=== PATIENT | female | born 1935 | race Caucasian/White ===

== ENCOUNTER → 2016-08-26 | Outpatient (REF) | payer MEDICARE, OTHER ==
[~2016-08-26] MED LIST: ASPI1TAB PO; ATEN50TA2 PO; Albuterol/Ipratropium NEB; CEPH500C PO; CHIL1CHW5 PO; COLC1TAB5 PO; DEXT50IN6 IV; DIOV320T6 PO; DOCU10CA PO; DOXY100T16 PO; GLIP5TAB8 PO; GLUC1INJ2 SC; GLUC4CHW PO; GLUCTAB6 PO; HYDR-3713 PO; JANU25TA PO; LOVE1INJ2 SC; MEGA625S PO; MIRT15TA3 PO; PANT40TA2 PO; POTA10CA PO; PRED10TA PO; PRED20TAB PO; PROT1TAB2 PO; SILV50CR TOP; SYNT50TA PO; TENO1TAB3 PO; TYLE325T5 PO; VALS1TAB46 PO; VITA1CAP2 PO; XARE15TA PO; ZOCO40TA PO
== END ==
LOC: M LAB REF 18:38
PROVIDERS: ATTEND Internal Medicine
DX: M10.372 Gout due to renal impairment, left ankle and foot (principal)

== ENCOUNTER → 2016-10-23 | Outpatient (CLI) | payer MEDICARE, OTHER ==
[~2016-10-23] MED LIST changes: +ALBU83IN INH; +ELIQ2.5T PO; +GLIP2.5T6 PO; +IPRASOL4 IN; +LEXA1TAB PO; +MACR100C3 PO; +NAME21CA PO; +QUET1TAB7 PO; +TORS5TAB2 PO; +VALS1TAB47 PO
--- NOTE | 2016-10-23 15:23 | REP ---
Right hand four views: There are no comparisons. There is osteoarthritis at the thumb CMC articulation. There is osteoarthritis at the articulation of the scaphoid and multangular ossicles. There is joint space narrowing of the PIP and DIP articulations compatible with articular cartilage atrophy. The MCP articulations are unremarkable. There is no fracture or dislocation. There are no calcifications or foreign bodies. 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 Joint space narrowing of the digits likely early osteoarthritic change. Signed by Smooth Ortiz MD 10/23/2016 03:15 P
== END ==
LOC: M WUC 14:59
PROVIDERS: ATTEND Physician Assistant
DX: N39.0 Urinary tract infection, site not specified (principal); M25.541 Pain in joints of right hand

== ENCOUNTER 2016-10-30 01:07 | Inpatient (IN) | payer MEDICARE, OTHER ==
[~2016-10-30] VITALS: Ht 157.5 cm; Wt 80.6 kg
[~2016-10-30 01:07] MED LIST changes: -ALBU83IN INH; -CHIL1CHW5 PO; +CHIL81CH2 PO; +COLC1TAB14 PO; -COLC1TAB5 PO; -ELIQ2.5T PO; -GLIP2.5T6 PO; -IPRASOL4 IN; -LEXA1TAB PO; -MACR100C3 PO; -NAME21CA PO; -QUET1TAB7 PO; -TORS5TAB2 PO; -VALS1TAB47 PO
[2016-10-30] MEDS ORDERED: LEXA1TAB PO (01:29)
[2016-10-30] MEDS ORDERED: ELIQ2.5T PO (01:29)
[2016-10-30] MEDS ORDERED: VITA1CAP2 PO (01:32)
[2016-10-30] MEDS ORDERED: TORS5TAB2 PO (01:32)
[2016-10-30] MEDS ORDERED: NAME21CA PO (01:32)
[2016-10-30] MEDS ORDERED: MACR100C43 PO (01:32)
[2016-10-30] MEDS ORDERED: IPRATROPIUM 0.5MG/ALBUTEROL 2.5MG INH SOL UD 3ML (DUONEB)(J7620) NEB ONE (02:30)
[2016-10-30 03:12] LABS: VENOUS BASE EXCESS 1.5 (-2.0-2.0); VENOUS O2 SATURATION 90.8 % (60.0-80.0); VENOUS PARTIAL PRESSURE O2 64.2 mmHg (30.0-50.0); VENOUS STANDARD HCO3 25.6 MEQ/L; VENOUS TOTAL CO2 28.6 MEQ/L (24.0-28.0)
[2016-10-30 03:17] LABS: INR 1.44
[2016-10-30 03:29] LABS: BASO # 0.1 K/mm3 (0.0-0.2); BASO % 0.4 % (0.0-1.0); EOS # 0.3 K/mm3 (0.0-0.50); EOS % 1.9 % (0.0-3.0); LARGE UNSTAINED CELL # 0.2 K/mm3 (0.0-0.4); LARGE UNSTAINED CELL % 1.3 % (0.0-4.0); LYMPH # 0.6 K/mm3 (1.5-4.5); LYMPH % 3.3 % (24.0-44.0); MEAN CORPUSCULAR HEMOGLOBIN 29.4 pg (27.0-33.0); MEAN CORPUSCULAR HGB CONC 33.5 g/dl (32.0-36.5); MONO # 0.5 K/mm3 (0.0-0.8); MONO % 3.5 % (0.0-5.0); NEUTROPHILS # 12.6 K/mm3 (1.8-7.7); NEUTROPHILS % 89.6 % (36.0-66.0); PLATELET COUNT, AUTOMATED 151 k/mm3 (150-450); RED CELL DISTRIBUTION WIDTH 15.4 % (11.5-14.5); WHITE BLOOD COUNT 14.1 K/mm3 (4.0-10.0)
[2016-10-30 03:50] LABS: ANION GAP 9 MEQ/L (8-16); BLOOD UREA NITROGEN 41 MG/DL (7-18); CALCIUM LEVEL 9.7 MG/DL (8.8-10.2); CARBON DIOXIDE LEVEL 28 MEQ/L (21-32); CHLORIDE LEVEL 101 MEQ/L (98-107); CREATININE FOR GFR 3.17 MG/DL (0.55-1.02); GLOMERULAR FILTRATION RATE 14.9 (>32); GLUCOSE, FASTING 223 MG/DL (83-110); SODIUM LEVEL 138 MEQ/L (136-145)
--- NOTE | 2016-10-30 03:50 | REPUSA ---
CLINICAL HISTORY: Altered mental status. TECHNIQUE: Multiple axial CT images were obtained through the brain without IV contrast material. COMMENTS: There is normal configuration of sella turcica. There are no intra or extra-axial collections. There is no mass effect or midline shift. There is no evidence of hematoma formation. No hydrocephalus is p resent. The ventricles are symmetrical. No abnormal calcifications are present. There is diffuse age-appropriate cerebellar and cerebral atrophy with proportionally dilated ventricl es and cortical sulci. There are bilateral periventricular and subcortical white matter hypolucencies compatible with mild c hronic microvascular disease. Otherwise, no significant focal abnormalities are seen either in the posterior fossa or supratentoria l compartment. IMPRESSION: 1. Age-appropriate cerebellar and cerebral atrophy. 2. Mild chronic microvascular disease. 3. No evidence of acute intracranial pathology. Thank you for your kind referral of this patient.
[2016-10-30] MEDS ORDERED: cefTRIAXone SOD 1 GM in D5W MINI-BAG PLUS 50 ML IV ONE (05:00)
[2016-10-30] MEDS ORDERED: GLIP2.5T6 PO (05:01)
[2016-10-30] MEDS ORDERED: ALBU83IN INH (05:01)
[2016-10-30] MEDS ORDERED: QUET1TAB7 PO (05:01)
[2016-10-30] MEDS ORDERED: IPRASOL4 IN (05:01)
[2016-10-30] MEDS ORDERED: VALS1TAB47 PO (05:03)
[2016-10-30] MEDS ORDERED: GLUCOSE 4 GM CHEW TABLET PO PRN (05:45)
[2016-10-30] MEDS ORDERED: GLUCAGON FOR INJ 1 MG VIAL (J1610) SC PRN (05:45)
[2016-10-30] MEDS ORDERED: FUROSEMIDE 100 MG/10 ML VIAL (J1940) IV ONE (05:45)
[2016-10-30] MEDS ORDERED: DEXTROSE 50% 50 ML SYRINGE IV PRN (05:45)
[2016-10-30] MEDS: LEVOTHYROXINE 50MCG TABLET (0.05MG) PO SCH (06:05)
[2016-10-30] MEDS ORDERED: ACETAMINOPHEN TAB 650MG DOSE (2X325MG) PO PRN (06:15)
[2016-10-30] MEDS ORDERED: ONDANSETRON 4MG/2ML VIAL (J2405) IV PRN (06:15)
--- NOTE | 2016-10-30 06:20 | REPUSA ---
CLINICAL HISTORY: Cough. TECHNIQUE: Multiple axial CT images were obtained through chest without IV contrast material. COMMENTS: Small pleural effusions. Passive atelectatic airspace disease of the lower lobes. Moderate cardiomegaly. Heavy calcifications of the mitral valve. Small pericardial effusion. Mildly enlarged mediastinal and hilar lymph nodes the largest measuring 1.3 cm. Small sliding hiatal hernia. Diffuse bilateral peribronchial interstitial thickening. The visualized portions of the liver are of uniform attenuation without mass or defect. There is no i ntra or extrahepatic biliary ductal dilatation. The spleen is unremarkable. The visualized pancreas i s of normal contour and attenuation characteristics. There is no evidence of adrenal mass. The visual ized portions of the kidneys present no abnormalities. The bony structures are free of lytic or blastic lesions. Multilevel degenerative changes are seen in volving the thoracic spine. Scattered calcifications are seen involving the aorta and visualized pranay r branches compatible with atherosclerosis. IMPRESSION: Congestive heart failure. Bronchitis. Small pleural effusions. Passive atelectatic airspace disease of the lower lobes. Bilateral basilar chronic interstitial thickening. Findings have progressed since the prior exam. Thank you for your kind referral of this patient.
[2016-10-30] MEDS ORDERED: IPRATROPIUM 0.5MG/ALBUTEROL 2.5MG INH SOL UD 3ML (DUONEB)(J7620) NEB PRN (06:30)
[2016-10-30 06:47] VITALS: BP 138/90
[2016-10-30] MEDS: AZITHROMYCIN INJ 500 MG, VIAL MATE ADAPTER 1 EACH in D5W 250 ML IV SCH (06:53)
[2016-10-30 07:25] VITALS: BP 127/73
[2016-10-30] MEDS: HumaLOG INSULIN (NovoLOG) PER UNIT SC SCH ×4 (07:30→21:00)
--- NOTE | 2016-10-30 07:55 | HPE ---
DATE OF ADMISSION: 10/30/2016 PRIMARY CARE PROVIDER: Dr. Ellis. CHIEF COMPLAINT: Shortness of breath, coughing, fall. HISTORY OF PRESENT ILLNESS: This is an 81-year-old female patient (history is significantly limited by dementia, mostly taken from family) with underlying medical history of type 2 diabetes, hypertension, dyslipidemia, diastolic congestive heart failure, upper gastrointestinal (GI) bleed with gastric ulcer, obstructive sleep apnea not on continuous positive airway pressure (CPAP), chronic atrial fibrillation on Eliquis, gout, hypothyroidism, chronic kidney disease (CKD) stage IV, baseline creatinine about 2, questionable history of chronic obstructive pulmonary disease (COPD),coronary artery disease. As per family, patient baseline ambulating with a walker, has a history of frequent falls about once a week, and also urinary and bowel incontinence, earlier last night, patient also has been having persistent cough, shortness of breath, positive sick contact as the patient's with pneumonia. Earlier last night, patient had an episode of nausea and vomiting. Subsequently, patient went to bed and was found down on the ground with the walker right next to the patient, without loss of consciousness. Patient was in the process of going to the bathroom, was found to be urinary and bowel incontinent. Patient denies any pain anywhere. Denies hitting her head or having any injury. Mental status currently at baseline, which is alert to person and place, with episodes of confusion. Patient does not know why she is at the hospital but does know she is at hospital emergency room. Recently treated for urinary tract infection (UTI) with nitrofurantoin. Patient was found to be febrile in the emergency room with hypoxia, not on oxygen at home. Denies any chest pain, pressure or discomfort. No further episodes of nausea or vomiting. ALLERGIES: To NONSTEROIDAL ANTI- INFLAMMATORY DRUG (NSAID), NAPROXEN. PAST MEDICAL HISTORY: 1. Type 2 diabetes. 2. Hypertension. 3. Dyslipidemia. 4. Diastolic heart failure. 5. Upper GI bleed with gastric ulcer. 6. Sleep apnea not on CPAP. 7. Atrial fibrillation on Eliquis. 8. Gout. 9. Hypothyroidism. 10. CKD stage IV. 11. Questionable history of COPD. 12. Coronary artery disease. PAST SURGICAL HISTORY: 1. Cataract surgery. 2. Esophagogastroduodenoscopy (EGD) with clipping. 3. Bilateral knee replacement. 4. Left shoulder surgery. SOCIAL HISTORY: Patient occasionally drinks wine, very rarely, once every 2 months or 3 months, and used to smoke many, many years ago in the teenage years for 10 years. Patient is DO NOT RESUSCITATE/DO NOT INTUBATE. FAMILY HISTORY: Father with coronary artery disease. Mother lived up to 101. REVIEW OF SYSTEM: Limited secondary to patient's dementia. The patient pretty much denies any chest pain, pressure or discomfort. Denies any headache or visual change. Reported one episode of nausea and vomiting. Reported frequent falls but denies pain anywhere. Denies urinary complaints. Further history not possible. HOME MEDICATION: - albuterol inhalation four times a day - DuoNebs four times a day - Eliquis 2.5 mg by mouth twice a day - atenolol 50 mg by mouth twice a day - vitamin D 1000 units by mouth daily - colchicine 0.6 mg by mouth daily - Lexapro 10 mg by mouth daily - glipizide 2.5 mg by mouth daily - Synthroid 50 mcg by mouth daily - Macrobid 100 mg by mouth twice a day (end day 10/30/2016) - Protonix 40 mg by mouth daily - Seroquel 12.5 mg by mouth nightly - Zocor 40 mg by mouth nightly - Januvia 25 mg by mouth daily - torsemide 5 mg by mouth daily - valsartan 160 mg by mouth daily PHYSICAL EXAMINATION: Vital Signs: Maximum temperature (Tmax) 100.6, pulse 108, respirations 18, blood pressure 137/93, pulse oximetry 88% on room air, 95% on 2 liters. General: Patient alert, oriented times two, in no acute distress. HEENT: Normocephalic, atraumatic. Pulmonary: Bilateral rhonchi. No wheeze. Cardiac: Irregularly irregular. Distant heart sound. No murmurs detected. Abdomen: Obese. Soft. Nontender. Positive bowel sound. Extremities: Trace edema bilateral lower extremities. EKG shows atrial fibrillation, rate of 102. No change from previous. LABORATORY: WBC 14.1, hemoglobin and hematocrit 13.6/40.6, platelets 151. Chemistry: [id number], potassium 4, chloride 101, bicarbonate 28, BUN 41, creatinine 3.17. Cardiac enzymes negative times one. C-reactive protein 3.29. Brain natriuretic peptide 323. CT scan shows evidence of congestive heart failure (CHF) with small pleural effusions. ASSESSMENT AND PLAN: This is an 81-year-old female patient with underlying medical history of diabetes type 2, [id number], hypertension, dyslipidemia, diastolic heart failure, upper gastrointestinal bleed, sleep apnea and noncompliant with CPAP, atrial fibrillation, gout, hypothyroidism, chronic kidney disease stage IV, questionable chronic obstructive pulmonary disease, coronary artery disease, admitted with community-acquired bacterial pneumonia, positive sick contact and acute congestive heart failure exacerbation with hypoxia. PROBLEMS: 1. Shortness of breath with hypoxia multifactorial secondary to community-acquired bacterial pneumonia with sick contact. Continue Rocephin and Zithromax. Follow culture, respiratory panels. Follow C-reactive proteins. 2. Acute diastolic heart failure. Unknown ejection fraction, likely a component of pulmonary artery hypertension. Given patient is not using CPAP with underlying obstructive sleep apnea, will get echocardiograms to assess right heart functions and pulmonary artery pressure. Diuresis with Lasix. Strict intake and output. Daily weight. Followup electrolytes. Followup kidney function and followup cardiac enzyme. Brain natriuretic peptide likely low given patient is obese. 3. Acute on chronic renal insufficiency. Patient recently on nitrofurantoin, likely effected patient's kidney function. Holding angiotensin receptor blockers (ARBs). Continue to monitor kidney function. 4. Type 2 diabetes. Holding oral medication given elevated kidney function. Insulin per protocol. Consistent carbohydrate diet. 5. Hypertension. Monitor blood pressure. Continue atenolol and Lasix. Holding ARBs given elevated kidney function. 6. Dyslipidemia. Continue current medication. 7. History of gastrointestinal bleed. Monitor hemoglobin and hematocrit. 8. Obstructive sleep apnea. Noncompliant with CPAP. Monitor oxygen. Obstructive sleep apnea (MONIQUE) protocol. Echo to evaluate right heart function. 9. Atrial fibrillation. Continue beta-blockers and Eliquis. Telemetry monitoring. 10. Gout. Continue supportive care. 11. Hypothyroidism. Followup thyroid function and continue current medication. 12. Sepsis secondary to community-acquired bacterial pneumonia. Patient with fever, leukocytosis and tachycardia. Followup cultures. Respiratory panel. Continue Rocephin and Zithromax. Urinalysis (UA) appreciated. 13. Gastroesophageal reflux disease (GERD). Continue proton pump inhibitor (PPI). 14. Depression. Continue current medication. 15. Dementia. Supportive care. Social work consulted. 16. Deep venous thrombosis (DVT) prophylaxis. Patient on Eliquis. DISPOSITION PLANNING: Pending clinical improvement and further workup. MTDD
[2016-10-30] MEDS: IPRATROPIUM 0.5MG/ALBUTEROL 2.5MG INH SOL UD 3ML (DUONEB)(J7620) NEB SCH ×3 (08:00→20:13)
--- NOTE | 2016-10-30 08:40 | REP ---
Chest x-ray: Two views. History: Dyspnea. Cough. Comparison study: March 02, 2015. Findings: The heart is enlarged and there is mitral annular calcification unchanged. The lungs are exposed at a lesser inspiratory level but symmetrical. No infiltrate or atelectasis seen. No definite pleural effusion noted. The aorta is tortuous and calcific. There are degenerative changes in the thoracic spine. Pulmonary vasculature is not felt to be increased. Impression: No infiltrate seen. Moderate cardiomegaly. Relatively low level of inspiration. Signed by Jewel Wakefield MD 10/30/2016 09:54 A
[2016-10-30] MEDS ORDERED: TORSEMIDE 5MG TABLET PO SCH (09:00)
[2016-10-30] MEDS: VITAMIN D 1,000 INTERNATIONAL UNITS TABLET PO SCH (10:56)
[2016-10-30] MEDS: PANTOPRAZOLE 40MG TAB (PROTONIX) PO SCH (10:56)
[2016-10-30] MEDS: APIXABAN 2.5 MG TAB (ELIQUIS) PO SCH ×2 (10:57→21:27)
[2016-10-30] MEDS: SENOKOT S TAB PO SCH ×2 (10:57→21:27)
[2016-10-30] MEDS: ATENOLOL 50 MG TAB PO SCH ×2 (10:58→21:28)
[2016-10-30] MEDS: FUROSEMIDE 100 MG/10 ML VIAL (J1940) IV SCH ×2 (11:00→18:16)
[2016-10-30] MEDS: ESCITALOPRAM OXALATE 10 MG TAB (LEXAPRO) PO SCH (11:14)
[2016-10-30 11:25] VITALS: BP 118/59
[2016-10-30 16:00] VITALS: BP 143/79
--- NOTE | 2016-10-30 19:34 | ECGEPIP ---
Stationary ECG Study [facility] - ED Test Date: 2016-10-30 Pat Name: CATY ORTIZ Department: Room: - Gender: F Marketing Pr Intern: sruthi : 1935 Requested By: YUNG Erazo Order Number: [id number] Reading MD: Keith Garcia Measurements Intervals [place] Rate: 102 P: [place]: 0 QRS: 95 QRSD: 150 T: -50 QT: 393 QTc: 512 Interpretive Statements ATRIAL FIBRILLATION WITH RAPID VENTRICULAR RESPONSE RIGHT BUNDLE BRANCH BLOCK MODERATE T-WAVE ABNORMALITY, CONSIDER INFERIOR ISCHEMIA RAD CW 02/23/[address] T WAVE CHANGES Electronically Signed On 10-30-2016 19:34:22 EDT by Keith Garcia
[2016-10-30 20:00] VITALS: BP 129/63; PULSE 87
[2016-10-30] MEDS: SIMVASTATIN 40 MG TAB PO SCH (21:27)
[2016-10-30] MEDS: QUEtiapine FUMARATE 12.5 MG HALF-TAB PO SCH (21:39)
[2016-10-30 23:59] VITALS: BP 132/87
[2016-10-31] VITALS (8 sets, daily range): BP systolic 110–159; BP diastolic 64–79; PULSE 73–77
[2016-10-31] MEDS: IPRATROPIUM 0.5MG/ALBUTEROL 2.5MG INH SOL UD 3ML (DUONEB)(J7620) NEB SCH ×4 (01:58→20:39)
[2016-10-31 05:13] LABS: MEAN CORPUSCULAR HEMOGLOBIN 29.3 pg (27.0-33.0); MEAN CORPUSCULAR VOLUME 88.8 fl (80.0-96.0); RED CELL DISTRIBUTION WIDTH 15.1 % (11.5-14.5); WHITE BLOOD COUNT 8.9 K/mm3 (4.0-10.0)
[2016-10-31] MEDS: cefTRIAXone SOD 1 GM in D5W MINI-BAG PLUS 50 ML IV SCH (05:18)
[2016-10-31] MEDS: LEVOTHYROXINE 50MCG TABLET (0.05MG) PO SCH (05:18)
[2016-10-31] MEDS: AZITHROMYCIN INJ 500 MG, VIAL MATE ADAPTER 1 EACH in D5W 250 ML IV SCH (05:18)
[2016-10-31 05:50] LABS: ALBUMIN 3.1 GM/DL (3.2-5.2); ALBUMIN/GLOBULIN RATIO 1.03 (1.00-1.93); BILIRUBIN,TOTAL 1.9 MG/DL (0.2-1.0); CALCIUM LEVEL 9.2 MG/DL (8.8-10.2); CREATININE FOR GFR 3.32 MG/DL (0.55-1.02); GLOMERULAR FILTRATION RATE 14.1 (>32); MAGNESIUM LEVEL 2.1 MG/DL (1.8-2.4); POTASSIUM SERUM 3.2 MEQ/L (3.5-5.1); THYROXINE (T4) 8.7 UG/DL (4.5-12.0); TOTAL PROTEIN 6.1 GM/DL (6.4-8.2)
[2016-10-31] MEDS: guaiFENesin 200 MG TAB PO SCH ×3 (06:00→21:16)
--- NOTE | 2016-10-31 07:26 | ECHO ---
DATE OF PROCEDURE: 10/30/2016 AGE: 81 GENDER: Female REFERRING PHYSICIAN: Dr. Strickland. HEIGHT: 62 inches. WEIGHT: 174 pounds. BODY SURFACE AREA: 1.8 sq m. INPATIENT: PCU Room 3214 INDICATION: Dyspnea, atrial fibrillation. MEASUREMENTS: 2D MEASUREMENTS: RV - 2.5 cm LV- 4.9 cm Septum - 1.1 cm Posterior wall - 1.1 cm Aortic root - 3.1 cm LA - 5.1 cm LVEF - 75% DOPPLER MEASUREMENTS: AV - 3.0 m/s LVOT - 1.1 m/s LVOT diameter - 2.2 cm Mean AV gradient - 20 mmHg MV-E: 200 Early mitral deacceleration time 211 ms Pressure half time - 72 Mean MV gradient - 5 mmHg MVA - 2.9 cm2 PV - 0.8 m/s Pulmonary artery acceleration time - 132 ms RVSP - 36 mmHg IVC - 2.1 cm Underlying atrial fibrillation with controlled ventricular response. Two-dimensional and M-mode echo was performed along with pulsed and continuous wave Doppler, tissue Doppler and color flow Doppler. CONCLUSIONS: Normal left ventricular size, wall thickness and hyperkinetic wall motion. Prominently dilated left atrium, normal right ventricular size and wall motion with Doppler evidence of mild pulmonary hypertension. Prominently dilated right atrium with mildly dilated inferior vena cava with slightly reduced respiratory collapse suggestive of a mildly elevated central venous pressure. Moderate calcific aortic stenosis with dimensionless index measuring 0.36. Trace insufficiency. Moderately prominent mitral annular calcification with some thickening of the leaflet edges especially the posterior leaflet but adequate anterior leaflet motion. Doppler evidence of at least mild mitral stenosis and mild insufficiency. No apparent intracardiac mass or pericardial effusion.
[2016-10-31] MEDS: HumaLOG INSULIN (NovoLOG) PER UNIT SC SCH ×4 (07:30→21:00)
[2016-10-31] MEDS: ESCITALOPRAM OXALATE 10 MG TAB (LEXAPRO) PO SCH (10:00)
[2016-10-31] MEDS: VITAMIN D 1,000 INTERNATIONAL UNITS TABLET PO SCH (10:00)
[2016-10-31] MEDS: APIXABAN 2.5 MG TAB (ELIQUIS) PO SCH ×2 (10:00→21:17)
[2016-10-31] MEDS: FUROSEMIDE 100 MG/10 ML VIAL (J1940) IV SCH ×2 (10:00→18:15)
[2016-10-31] MEDS: SENOKOT S TAB PO SCH ×2 (10:00→21:16)
[2016-10-31] MEDS: PANTOPRAZOLE 40MG TAB (PROTONIX) PO SCH (10:00)
[2016-10-31] MEDS: ATENOLOL 50 MG TAB PO SCH ×2 (10:01→21:17)
[2016-10-31] MEDS ORDERED: POTASSIUM CHLORIDE 10 MEQ SR TABLET PO ONE (12:00)
--- NOTE | 2016-10-31 12:22 | IPNPDOC ---
Subjective Date Seen The patient was seen on 10/31/16. Subjective Chief Complaint/HPI The patient is a 81-year-old female admitted with a reason for visit of Diastolic Chf/Pneumonia. Events since last encounter Complains of cough with difficulty expectorating. Poor historian. Family (2 sons ) at bedside. General: Denies: ROS Unobtainable, Chills, Night Sweats, Fatigue, Malaise, Normal Appetite, Other Symptoms Constitutional: Denies: Chills, Fever, Malaise, Night Sweats, Weakness, Fatigue , Weight Loss, Lethargy, Other Eyes: Denies: Pain, Vision change, Conjunctivae inflammation, Eyelid inflammation, Redness, Other ENT: Denies: Head Aches, Ear Pain, Dysphagia, Sinus Congestion, Post Nasal Drip , Sore Throat, Epistaxis, Other Symptoms Skin: Denies: Rash, Lesions, Jaundice, Bruising, Itching, Dry, Breakdown, Nail Changes, Other Pulmonary: Reports: Cough, Denies: Dyspnea, Pleuritic Chest Pain, Other Symptoms Cardiovascular: Denies: Chest Pain, Palpitations, Orthopnea, Paroxysmal Noc. Dyspnea, Edema, Lt Headedness, Other Symptoms Gastrointestinal: Denies: Nausea, Vomiting, Abdominal Pain, Diarrhea, Constipation, Melena, Hematochezia, Other Symptoms Genitourinary: Denies: Dysuria, Frequency, Incontinence, Hematuria, Retention, Other Symptoms Objective Physical Examination General Exam: Positive: Alert, Cooperative, No Acute Distress Eye Exam: Positive: Conjunctiva & lids normal, EOMI Assessment /Plan Problems (1) Diastolic CHF Status: Acute Response to Treatment: Improving Discussed With: Patient, Family with Pt Consent Problem Specific Plan: Monitor Clinically Problem Text: Grossly compensated. Discontinued IV lasix. Home torsemide on hold for now given worsening creatinine. (2) Pneumonia Status: Acute Response to Treatment: Improving Discussed With: Patient, Family with Pt Consent Problem Specific Plan: Monitor Clinically Problem Text: Respiratory panel and sputum sample pending. For now continue with antibiotics. (3) Falls frequently Status: Chronic Discussed With: Patient, Family with Pt Consent Problem Specific Plan: Consult Specialist Problem Text: PT/OT eval/treat (4) Weakness Status: Chronic (5) Dementia Status: Chronic Problem Text: continue seroquel and lexapro as per home regimen (6) Diabetes Status: Chronic Problem Text: insulin sliding scale (7) Hypothyroid Status: Chronic Problem Text: continue synthroid (8) CKD (chronic kidney disease) Status: Chronic Problem Text: acute on chronic kidney disease. torsemide on hold. ARB on hold Nephrology consultation pending. (9) CAD (coronary artery disease) Status: Chronic Problem Text: continue zocor, atenolol (10) Dyslipidemia Status: Chronic Problem Text: Zocor (11) Upper GI bleed Status: Chronic Problem Text: History of upper gi bleed secondary to gastric ulcer (12) MONIQUE (obstructive sleep apnea) Status: Chronic Problem Specific Plan: Monitor Clinically (13) HTN (hypertension) Status: Chronic Problem Specific Plan: Monitor Clinically Problem Text: Continue with atenolol with hold parameters ARB on hold secondary to LES/CKD (14) Atrial fibrillation Status: Chronic Problem Specific Plan: Monitor Clinically Problem Text: rate controlled, anticoagulated with eliquis (15) Gout Status: Chronic Problem Specific Plan: Monitor Clinically Problem Text: colchicine (16) CKD (chronic kidney disease), stage IV Status: Chronic Problem Specific Plan: Repeat Labs Plan/VTE VTE Prophylaxis Ordered?: Yes (eliquis) Plan Diet: Continue Current Activity: Continue Current Therapy: PT, OT Pt and Family Services: Other PFS Diagnostics: Repeat Labs in AM Anticipated Discharge: Assisted Living, Skilled Nursing Discussed at length with sons at bedside and POA/HCP Antonio ([phone]). Patient with dementia and likely needs 24/7 care. Patient almost euvolemic -wean O2. Respiratory panel pending, sputum sample pending. IV antibiotics, likely transition to PO lasix in 24-48 hours. VS[facility] I[facility] Sign[facility]/I&O Vital Signs Date Time Temp Pulse Resp B/P (MAP) Pulse Ox O2 Delivery O2 Flow Rate FiO2 10/31/16 04:00 77 10/31/16 04:00 Room Air 10/31/16 03:57 98.4 20 121/71 (88) 90 3.0 I&O- Last 24 Hours up to 6 AM 10/31/16 05:59 Intake Total 1110 ml Output Total 300 ml Balance 810 ml Laboratory Data 24H LABS Laboratory Tests 2 10/30/16 11:44: Bedside Glucose (Misc Panel) 160H 10/30/16 16:17: Bedside Glucose (Misc Panel) 93 10/30/16 21:33: Bedside Glucose (Misc Panel) 116H 10/31/16 04:56: Anion Gap 8, Glomerular Filtration Rate 14.1L, Blood Urea Nitrogen 42H, Creatinine 3.32H, Sodium Level 142, Potassium Level 3.2L, Chloride Level 104, Carbon Dioxide Level 30, Calcium Level 9.2, Aspartate Amino Transf (AST/SGOT) 21 , Alanine Aminotransferase (ALT/SGPT) 19, Alkaline Phosphatase 73, Total Bilirubin 1.9H, Total Protein 6.1L, Albumin 3.1L, Magnesium Level 2.1, C- Reactive Protein, Quantitative 5.18H, Albumin/Globulin Ratio 1.03, Thyroid Stimulating Hormone (TSH) 1.820, Free Thyroxine Index 3.0, Thyroxine (T4) 8.7, Triiodothyronine (T3) Uptake 35 CBC/BMP Laboratory Tests 10/31/16 04:56 Red Blood Count 4.34, Mean Corpuscular Volume 88.8, Mean Corpuscular Hemoglobin 29.3, Mean Corpuscular Hemoglobin Concent 33.0, Red Cell Distribution Width 15.1 H, Calcium Level 9.2, Aspartate Amino Transf (AST/SGOT) 21, Alanine Aminotransferase (ALT/SGPT) 19, Alkaline Phosphatase 73, Total Bilirubin 1.9 H, Total Protein 6.1 L, Albumin 3.1 L Microbiology Microbiology 10/30/16 Blood Culture - Preliminary, Resulted No growth after 24 hours . All specim... 10/30/16 Blood Culture - Preliminary, Resulted No growth after 24 hours . All specim... 10/30/16 Influenza Virus Type A Antigen - Final, Complete 10/30/16 Influenza Virus Type B Antigen - Final, Complete 10/30/16 Urine Culture, Worksheet Pending BROOKE MUSTAFA MD Oct 31, 2016 09:02
[2016-10-31] MEDS: QUEtiapine FUMARATE 12.5 MG HALF-TAB PO SCH (21:16)
[2016-10-31] MEDS: SIMVASTATIN 40 MG TAB PO SCH (21:17)
[2016-11-01] MEDS: IPRATROPIUM 0.5MG/ALBUTEROL 2.5MG INH SOL UD 3ML (DUONEB)(J7620) NEB SCH ×4 (02:00→20:00)
[2016-11-01 04:03] VITALS: BP 169/85
[2016-11-01 04:31] VITALS: BP 145/75
[2016-11-01] MEDS: cefTRIAXone SOD 1 GM in D5W MINI-BAG PLUS 50 ML IV SCH (05:12)
[2016-11-01 05:47] LABS: MEAN CORPUSCULAR HEMOGLOBIN 29.4 pg (27.0-33.0); MEAN CORPUSCULAR HGB CONC 33.6 g/dl (32.0-36.5); MEAN CORPUSCULAR VOLUME 87.5 fl (80.0-96.0); WHITE BLOOD COUNT 9.5 K/mm3 (4.0-10.0)
[2016-11-01] MEDS: AZITHROMYCIN INJ 500 MG, VIAL MATE ADAPTER 1 EACH in D5W 250 ML IV SCH (05:54)
[2016-11-01 06:00] LABS: ALBUMIN 3.2 GM/DL (3.2-5.2); ALBUMIN/GLOBULIN RATIO 0.97 (1.00-1.93); BILIRUBIN,TOTAL 1.6 MG/DL (0.2-1.0); CALCIUM LEVEL 9.3 MG/DL (8.8-10.2); CREATININE FOR GFR 3.32 MG/DL (0.55-1.02); GLOMERULAR FILTRATION RATE 14.1 (>32); POTASSIUM SERUM 3.3 MEQ/L (3.5-5.1); TOTAL PROTEIN 6.5 GM/DL (6.4-8.2)
[2016-11-01] MEDS: guaiFENesin 200 MG TAB PO SCH ×3 (06:33→21:41)
[2016-11-01] MEDS: LEVOTHYROXINE 50MCG TABLET (0.05MG) PO SCH (06:33)
[2016-11-01 07:53] VITALS: BP 115/62
[2016-11-01] MEDS ORDERED: POTASSIUM CHLORIDE 10 MEQ SR TABLET PO ONE (08:00)
[2016-11-01] MEDS: APIXABAN 2.5 MG TAB (ELIQUIS) PO SCH ×2 (09:36→21:42)
[2016-11-01] MEDS: PANTOPRAZOLE 40MG TAB (PROTONIX) PO SCH (09:36)
[2016-11-01] MEDS: ESCITALOPRAM OXALATE 10 MG TAB (LEXAPRO) PO SCH (09:36)
[2016-11-01] MEDS: VITAMIN D 1,000 INTERNATIONAL UNITS TABLET PO SCH (09:39)
[2016-11-01] MEDS: ATENOLOL 50 MG TAB PO SCH ×2 (09:39→21:42)
[2016-11-01] MEDS: SENOKOT S TAB PO SCH ×2 (09:39→21:41)
[2016-11-01] MEDS: HumaLOG INSULIN (NovoLOG) PER UNIT SC SCH ×4 (09:40→21:00)
[2016-11-01 11:33] VITALS: BP 156/82
--- NOTE | 2016-11-01 13:50 | IPNPDOC ---
Subjective Date Seen The patient was seen on 11/01/16. Subjective Chief Complaint/HPI The patient is a 81-year-old female admitted with a reason for visit of Diastolic Chf/Pneumonia. General: Denies: ROS Unobtainable, Chills, Night Sweats, Fatigue, Malaise, Normal Appetite, Other Symptoms Constitutional: Denies: Chills, Fever, Malaise, Night Sweats, Weakness, Fatigue , Weight Loss, Lethargy, Other Eyes: Denies: Pain, Vision change, Conjunctivae inflammation, Eyelid inflammation, Redness, Other ENT: Denies: Head Aches, Ear Pain, Dysphagia, Sinus Congestion, Post Nasal Drip , Sore Throat, Epistaxis, Other Symptoms Skin: Denies: Rash, Lesions, Jaundice, Bruising, Itching, Dry, Breakdown, Nail Changes, Other Pulmonary: Denies: Dyspnea, Cough, Pleuritic Chest Pain, Other Symptoms Cardiovascular: Denies: Chest Pain, Palpitations, Orthopnea, Paroxysmal Noc. Dyspnea, Edema, Lt Headedness, Other Symptoms Gastrointestinal: Denies: Nausea, Vomiting, Abdominal Pain, Diarrhea, Constipation, Melena, Hematochezia, Other Symptoms Objective Physical Examination General Exam: Positive: Alert, Cooperative, No Acute Distress Eye Exam: Positive: Conjunctiva & lids normal, EOMI ENT Exam: Positive: Atraumatic Chest Exam: Positive: Clear to auscultation, Diminished Heart Exam: Positive: Irregular Rhythm Telemetry: Positive: Atrial fibrillation Abdomen Exam: Positive: Normal bowel sounds, Soft, Negative: Tenderness Extremity Exam: Negative: Edema Psych Exam: Negative: Oriented x 3 Assessment /Plan Problems (1) Diastolic CHF Status: Acute Response to Treatment: Improving Discussed With: Patient, Family with Pt Consent Problem Specific Plan: Monitor Clinically Problem Text: Grossly compensated. Discontinued IV lasix. Home torsemide on hold for now given worsening creatinine. (2) Pneumonia Status: Acute Response to Treatment: Improving Discussed With: Patient, Family with Pt Consent Problem Specific Plan: Monitor Clinically Problem Text: Respiratory panel and sputum sample pending. For now continue with antibiotics. (3) Falls frequently Status: Chronic Discussed With: Patient, Family with Pt Consent Problem Specific Plan: Consult Specialist Problem Text: PT/OT eval/treat (4) Weakness Status: Chronic (5) Dementia Status: Chronic Problem Text: continue seroquel and lexapro as per home regimen (6) Diabetes Status: Chronic Problem Text: insulin sliding scale (7) Hypothyroid Status: Chronic Problem Text: continue synthroid (8) CKD (chronic kidney disease) Status: Chronic Problem Text: acute on chronic kidney disease. torsemide on hold. ARB on hold Nephrology consultation pending. (9) CAD (coronary artery disease) Status: Chronic Problem Text: continue zocor, atenolol (10) Dyslipidemia Status: Chronic Problem Text: Zocor (11) Upper GI bleed Status: Chronic Problem Text: History of upper gi bleed secondary to gastric ulcer (12) MONIQUE (obstructive sleep apnea) Status: Chronic Problem Specific Plan: Monitor Clinically (13) HTN (hypertension) Status: Chronic Problem Specific Plan: Monitor Clinically Problem Text: Continue with atenolol with hold parameters ARB on hold secondary to LES/CKD (14) Atrial fibrillation Status: Chronic Problem Specific Plan: Monitor Clinically Problem Text: rate controlled, anticoagulated with eliquis (15) Gout Status: Chronic Problem Specific Plan: Monitor Clinically Problem Text: colchicine (16) CKD (chronic kidney disease), stage IV Status: Chronic Problem Specific Plan: Repeat Labs Plan/VTE VTE Prophylaxis Ordered?: Yes (eliquis) Plan Diet: Continue Current Activity: Continue Current Therapy: PT, OT Pt and Family Services: Other PFS Diagnostics: Repeat Labs in AM Anticipated Discharge: Assisted Living, Group Home Creatinine increased. Baseline possibly 2? Nephrology consultation pending - holding ARB and torsemide. Will need placement. VS, I&O, 24H, Fishbone Vital Signs/I&O Vital Signs Date Time Temp Pulse Resp B/P (MAP) Pulse Ox O2 Delivery O2 Flow Rate FiO2 11/01/16 11:33 96.4 68 18 156/82 (106) 97 Room Air 10/31/16 15:30 3.0 I&O- Last 24 Hours up to 6 AM 11/01/16 06:00 Intake Total 1590 ml Output Total 1400 ml Balance 190 ml Laboratory Data 24H LABS Laboratory Tests 2 10/31/16 16:47: Bedside Glucose (Misc Panel) 124H 10/31/16 21:21: Bedside Glucose (Misc Panel) 162H 11/01/16 05:02: Anion Gap 8, Glomerular Filtration Rate 14.1L, Blood Urea Nitrogen 41H, Creatinine 3.32H, Sodium Level 139, Potassium Level 3.3L, Chloride Level 101, Carbon Dioxide Level 30, Calcium Level 9.3, Aspartate Amino Transf (AST/SGOT) 19 , Alanine Aminotransferase (ALT/SGPT) 19, Alkaline Phosphatase 81, Total Bilirubin 1.6H, Total Protein 6.5, Albumin 3.2, Magnesium Level 2.0, Albumin/ Globulin Ratio 0.97L 11/01/16 11:33: Bedside Glucose (Misc Panel) 144H CBC/BMP Laboratory Tests 11/01/16 05:02 Red Blood Count 4.55, Mean Corpuscular Volume 87.5, Mean Corpuscular Hemoglobin 29.4, Mean Corpuscular Hemoglobin Concent 33.6, Red Cell Distribution Width 15.0 H, Calcium Level 9.3, Aspartate Amino Transf (AST/SGOT) 19, Alanine Aminotransferase (ALT/SGPT) 19, Alkaline Phosphatase 81, Total Bilirubin 1.6 H, Total Protein 6.5, Albumin 3.2 Microbiology Microbiology 10/30/16 Blood Culture - Preliminary, Resulted No Growth after 48 hours. All Specime... 10/30/16 Blood Culture - Preliminary, Resulted No Growth after 48 hours. All Specime... 11/01/16 Respiratory Virus Panel (PCR) (CHASIDY) - Final, Complete 10/30/16 Influenza Virus Type A Antigen - Final, Complete 10/30/16 Influenza Virus Type B Antigen - Final, Complete 10/30/16 Urine Culture - Final, Complete Proteus Mirabilis BROOKE MUSTAFA MD Nov 01, 2016 13:50
[2016-11-01] MEDS: COLCHICINE 0.6 MG TAB PO SCH (14:56)
[2016-11-01 16:00] VITALS: BP 130/96
[2016-11-01 20:25] VITALS: BP 156/71
[2016-11-01] MEDS: QUEtiapine FUMARATE 12.5 MG HALF-TAB PO SCH (21:41)
[2016-11-01] MEDS: SIMVASTATIN 40 MG TAB PO SCH (21:42)
[2016-11-02] VITALS (7 sets, daily range): BP systolic 138–157; BP diastolic 88–96
[2016-11-02] MEDS: IPRATROPIUM 0.5MG/ALBUTEROL 2.5MG INH SOL UD 3ML (DUONEB)(J7620) NEB SCH ×4 (01:17→20:00)
[2016-11-02] MEDS: guaiFENesin 200 MG TAB PO SCH ×3 (05:36→21:20)
[2016-11-02] MEDS: cefTRIAXone SOD 1 GM in D5W MINI-BAG PLUS 50 ML IV SCH (05:36)
[2016-11-02] MEDS: LEVOTHYROXINE 50MCG TABLET (0.05MG) PO SCH (05:36)
[2016-11-02 05:39] LABS: MEAN CORPUSCULAR HEMOGLOBIN 29.6 pg (27.0-33.0); MEAN CORPUSCULAR HGB CONC 33.6 g/dl (32.0-36.5); MEAN CORPUSCULAR VOLUME 88.1 fl (80.0-96.0); RED CELL DISTRIBUTION WIDTH 15.3 % (11.5-14.5); WHITE BLOOD COUNT 8.4 K/mm3 (4.0-10.0)
[2016-11-02 06:10] LABS: ALBUMIN 3.2 GM/DL (3.2-5.2); ALBUMIN/GLOBULIN RATIO 1.1 (1.00-1.93); BILIRUBIN,TOTAL 1.2 MG/DL (0.2-1.0); CALCIUM LEVEL 9.2 MG/DL (8.8-10.2); GLOMERULAR FILTRATION RATE 15.9 (>32); MAGNESIUM LEVEL 2.1 MG/DL (1.8-2.4); POTASSIUM SERUM 3.7 MEQ/L (3.5-5.1); TOTAL PROTEIN 6.1 GM/DL (6.4-8.2)
[2016-11-02] MEDS: SENOKOT S TAB PO SCH ×2 (09:45→21:20)
[2016-11-02] MEDS: PANTOPRAZOLE 40MG TAB (PROTONIX) PO SCH (09:45)
[2016-11-02] MEDS: ESCITALOPRAM OXALATE 10 MG TAB (LEXAPRO) PO SCH (09:46)
[2016-11-02] MEDS: AZITHROMYCIN 250 MG TAB PO SCH (09:46)
[2016-11-02] MEDS: COLCHICINE 0.6 MG TAB PO SCH (09:46)
[2016-11-02] MEDS: VITAMIN D 1,000 INTERNATIONAL UNITS TABLET PO SCH (09:46)
[2016-11-02] MEDS: APIXABAN 2.5 MG TAB (ELIQUIS) PO SCH ×2 (09:46→21:20)
[2016-11-02] MEDS: ATENOLOL 50 MG TAB PO SCH ×2 (09:47→21:20)
[2016-11-02] MEDS: HumaLOG INSULIN (NovoLOG) PER UNIT SC SCH ×4 (09:48→20:22)
--- NOTE | 2016-11-02 14:52 | IPNPDOC ---
Subjective Date Seen The patient was seen on 11/02/16. Subjective Chief Complaint/HPI The patient is a 81-year-old female admitted with a reason for visit of Diastolic Chf/Pneumonia. Events since last encounter Poor historian, but complains of cough, no sputum, feeling better than at admission, tolerating diet, wants to leave hospital. Constitutional: Denies: Chills, Fever Pulmonary: Reports: Cough, Denies: Dyspnea Cardiovascular: Denies: Chest Pain, Palpitations Gastrointestinal: Denies: Nausea, Vomiting, Abdominal Pain Objective Physical Examination General Exam: Positive: Alert, Cooperative Eye Exam: Negative: Sclera icteric ENT Exam: Positive: Atraumatic, Mucous membr. moist/pink Chest Exam: Positive: Clear to auscultation, Diminished, Negative: Wheezing Heart Exam: Positive: Rate Normal, Irregular Rhythm, Normal S1, Normal S2 Telemetry: Positive: Atrial fibrillation Abdomen Exam: Positive: Normal bowel sounds, Soft, Negative: Tenderness Extremity Exam: Negative: Edema Psych Exam: Negative: Oriented x 3 Assessment /Plan Problems (1) Diastolic CHF Status: Acute Response to Treatment: Improving Discussed With: Patient, Family with Pt Consent Problem Specific Plan: Monitor Clinically Problem Text: Grossly compensated. Off IV lasix. Home torsemide on hold for now given worsening creatinine. Consider restart 11/03/16 (2) Pneumonia Status: Acute Response to Treatment: Improving Discussed With: Patient, Family with Pt Consent Problem Specific Plan: Monitor Clinically Problem Text: Respiratory panel neg sputum sample pending- likely will not be obtained Plan 5 days of antibiotics (3) Falls frequently Status: Chronic Discussed With: Patient, Family with Pt Consent Problem Specific Plan: Consult Specialist Problem Text: PT/OT eval/treat- discussed at multidisciplinary rounds (4) Weakness Status: Chronic (5) Dementia Status: Chronic Problem Text: continue seroquel and lexapro as per home regimen plan for placement (6) Diabetes Status: Chronic Problem Text: insulin sliding scale (7) Hypothyroid Status: Chronic Problem Text: continue synthroid (8) CKD (chronic kidney disease) Status: Chronic Problem Text: acute on chronic kidney disease. torsemide on hold. ARB on hold Consider nephrology consult depending on clinical course, cr improving today (9) CAD (coronary artery disease) Status: Chronic Problem Text: continue zocor, atenolol (10) Dyslipidemia Status: Chronic Problem Text: Zocor (11) Upper GI bleed Status: Chronic Problem Text: History of upper gi bleed secondary to gastric ulcer (12) MONIQUE (obstructive sleep apnea) Status: Chronic Problem Specific Plan: Monitor Clinically (13) HTN (hypertension) Status: Chronic Problem Specific Plan: Monitor Clinically Problem Text: Continue with atenolol with hold parameters ARB on hold secondary to LES/CKD (14) Atrial fibrillation Status: Chronic Problem Specific Plan: Monitor Clinically Problem Text: rate controlled, anticoagulated with eliquis (15) Gout Status: Chronic Problem Specific Plan: Monitor Clinically Problem Text: colchicine (16) CKD (chronic kidney disease), stage IV Status: Chronic Problem Specific Plan: Repeat Labs Plan/VTE VTE Prophylaxis Ordered?: Yes (eliquis) Plan Diet: Continue Current Activity: Continue Current Therapy: PT, OT Pt and Family Services: Other PFS Diagnostics: Repeat Labs in AM Anticipated Discharge: Assisted Living, [facility] VS, I&O, 24H, Fishbone Vital Signs/I&O Vital Signs Date Time Temp Pulse Resp B/P (MAP) Pulse Ox O2 Delivery O2 Flow Rate FiO2 11/02/16 13:12 Room Air 11/02/16 11:30 96.5 84 20 147/93 (111) 93 10/31/16 15:30 3.0 I&O- Last 24 Hours up to 6 AM 11/02/16 06:00 Intake Total 480 ml Output Total 1350 ml Balance -870 ml Laboratory Data 24H LABS Laboratory Tests 2 11/01/16 17:04: Bedside Glucose (Misc Panel) 160H 11/02/16 05:15: Anion Gap 7L, Glomerular Filtration Rate 15.9L, Blood Urea Nitrogen 38H, Creatinine 3.00H, Sodium Level 141, Potassium Level 3.7, Chloride Level 105, Carbon Dioxide Level 29, Calcium Level 9.2, Aspartate Amino Transf (AST/SGOT) 17 , Alanine Aminotransferase (ALT/SGPT) 19, Alkaline Phosphatase 72, Total Bilirubin 1.2H, Total Protein 6.1L, Albumin 3.2, Magnesium Level 2.1, Albumin/ Globulin Ratio 1.10 CBC/BMP Laboratory Tests 11/02/16 05:15 Red Blood Count 4.38, Mean Corpuscular Volume 88.1, Mean Corpuscular Hemoglobin 29.6, Mean Corpuscular Hemoglobin Concent 33.6, Red Cell Distribution Width 15.3 H, Calcium Level 9.2, Aspartate Amino Transf (AST/SGOT) 17, Alanine Aminotransferase (ALT/SGPT) 19, Alkaline Phosphatase 72, Total Bilirubin 1.2 H, Total Protein 6.1 L, Albumin 3.2 Microbiology Microbiology 10/30/16 Blood Culture - Preliminary, Resulted No Growth after 72 hours. All specime... 10/30/16 Blood Culture - Preliminary, Resulted No Growth after 72 hours. All specime... 11/01/16 Respiratory Virus Panel (PCR) (CHASIDY) - Final, Complete 10/30/16 Influenza Virus Type A Antigen - Final, Complete 10/30/16 Influenza Virus Type B Antigen - Final, Complete 10/30/16 Urine Culture - Final, Complete Proteus Mirabilis KIMBERLEE ROBERTS MD Nov 02, 2016 14:52
[2016-11-02] MEDS: QUEtiapine FUMARATE 12.5 MG HALF-TAB PO SCH (21:20)
[2016-11-02] MEDS: SIMVASTATIN 40 MG TAB PO SCH (21:20)
[2016-11-03] MEDS: IPRATROPIUM 0.5MG/ALBUTEROL 2.5MG INH SOL UD 3ML (DUONEB)(J7620) NEB SCH ×4 (02:00→19:50)
[2016-11-03] MEDS: guaiFENesin 200 MG TAB PO SCH ×3 (05:47→21:15)
[2016-11-03] MEDS: LEVOTHYROXINE 50MCG TABLET (0.05MG) PO SCH (05:47)
[2016-11-03] MEDS: cefTRIAXone SOD 1 GM in D5W MINI-BAG PLUS 50 ML IV SCH (05:47)
[2016-11-03 06:00] VITALS: BP 147/86
[2016-11-03 06:08] LABS: MEAN CORPUSCULAR HEMOGLOBIN 29.7 pg (27.0-33.0); MEAN CORPUSCULAR HGB CONC 33.7 g/dl (32.0-36.5); MEAN CORPUSCULAR VOLUME 88.2 fl (80.0-96.0); RED CELL DISTRIBUTION WIDTH 14.9 % (11.5-14.5); WHITE BLOOD COUNT 8.9 K/mm3 (4.0-10.0)
[2016-11-03 06:24] LABS: ALBUMIN 3.2 GM/DL (3.2-5.2); BILIRUBIN,TOTAL 1.1 MG/DL (0.2-1.0); CALCIUM LEVEL 9.6 MG/DL (8.8-10.2); CREATININE FOR GFR 2.51 MG/DL (0.55-1.02); GLOMERULAR FILTRATION RATE 19.5 (>32); MAGNESIUM LEVEL 2.2 MG/DL (1.8-2.4); POTASSIUM SERUM 3.8 MEQ/L (3.5-5.1); TOTAL PROTEIN 6.4 GM/DL (6.4-8.2)
[2016-11-03] MEDS ORDERED: TORSEMIDE 10 MG TABLET PO SCH (09:00)
[2016-11-03] MEDS: PANTOPRAZOLE 40MG TAB (PROTONIX) PO SCH (10:04)
[2016-11-03] MEDS: AZITHROMYCIN 250 MG TAB PO SCH (10:04)
[2016-11-03] MEDS: COLCHICINE 0.6 MG TAB PO SCH (10:05)
[2016-11-03] MEDS: VITAMIN D 1,000 INTERNATIONAL UNITS TABLET PO SCH (10:05)
[2016-11-03] MEDS: SENOKOT S TAB PO SCH ×2 (10:06→21:15)
[2016-11-03] MEDS: ESCITALOPRAM OXALATE 10 MG TAB (LEXAPRO) PO SCH (10:06)
[2016-11-03] MEDS: APIXABAN 2.5 MG TAB (ELIQUIS) PO SCH ×2 (10:07→21:15)
[2016-11-03] MEDS: ATENOLOL 50 MG TAB PO SCH ×2 (10:08→21:15)
[2016-11-03] MEDS: HumaLOG INSULIN (NovoLOG) PER UNIT SC SCH ×4 (10:10→20:50)
[2016-11-03 14:00] VITALS: BP 145/85
--- NOTE | 2016-11-03 15:11 | IPNPDOC ---
Subjective Date Seen The patient was seen on 11/03/16. Subjective Chief Complaint/HPI The patient is a 81-year-old female admitted with a reason for visit of Diastolic Chf/Pneumonia. Events since last encounter Feeling well, misses her , no pain, no shortness of breath, enjoyed breakfast Constitutional: Denies: Chills, Fever Pulmonary: Denies: Dyspnea, Cough Cardiovascular: Denies: Chest Pain, Palpitations Gastrointestinal: Denies: Nausea, Vomiting, Abdominal Pain Objective Physical Examination General Exam: Positive: Alert, Cooperative, No Acute Distress Eye Exam: Negative: Sclera icteric ENT Exam: Positive: Atraumatic, Mucous membr. moist/pink Chest Exam: Positive: Clear to auscultation, Diminished, Negative: Rhonchi, Wheezing Heart Exam: Positive: Rate Normal, Irregular Rhythm, Normal S1, Normal S2 Telemetry: Positive: Atrial fibrillation Abdomen Exam: Positive: Normal bowel sounds, Soft, Negative: Tenderness Extremity Exam: Negative: Edema Psych Exam: Negative: Oriented x 3 Assessment /Plan Problems (1) Diastolic CHF Status: Acute Response to Treatment: Improving Discussed With: Patient, Family with Pt Consent Problem Specific Plan: Monitor Clinically Problem Text: Grossly compensated. Off IV lasix. tarting torsemide (11/03/16) (2) Pneumonia Status: Acute Response to Treatment: Improving Discussed With: Patient, Family with Pt Consent Problem Specific Plan: Monitor Clinically Problem Text: Respiratory panel neg sputum sample pending- likely will not be obtained Plan 5 days of antibiotics- switched to omnicef after consultation with pharmacy and renal dosing of omnicef (3) Falls frequently Status: Chronic Discussed With: Patient, Family with Pt Consent Problem Specific Plan: Consult Specialist Problem Text: PT/OT eval/treat- discussed at multidisciplinary rounds Plan for placement- I discussed with sonAntonio, in person (4) Weakness Status: Chronic (5) Dementia Status: Chronic Problem Text: continue seroquel and lexapro as per home regimen plan for placement (6) Diabetes Status: Chronic Problem Text: insulin sliding scale (7) Hypothyroid Status: Chronic Problem Text: continue synthroid (8) CKD (chronic kidney disease) Status: Chronic Problem Text: acute on chronic kidney disease. torsemide on hold. ARB on hold Consider nephrology consult depending on clinical course, cr improving today (9) CAD (coronary artery disease) Status: Chronic Problem Text: continue zocor, atenolol (10) Dyslipidemia Status: Chronic Problem Text: Zocor (11) Upper GI bleed Status: Chronic Problem Text: History of upper gi bleed secondary to gastric ulcer (12) MONIQUE (obstructive sleep apnea) Status: Chronic Problem Specific Plan: Monitor Clinically (13) HTN (hypertension) Status: Chronic Problem Specific Plan: Monitor Clinically Problem Text: Continue with atenolol with hold parameters ARB on hold secondary to LES/CKD (14) Atrial fibrillation Status: Chronic Problem Specific Plan: Monitor Clinically Problem Text: rate controlled, anticoagulated with eliquis (15) Gout Status: Chronic Problem Specific Plan: Monitor Clinically Problem Text: colchicine (16) CKD (chronic kidney disease), stage IV Status: Chronic Problem Specific Plan: Repeat Labs Plan/VTE VTE Prophylaxis Ordered?: Yes (eliquis) Plan Diet: Continue Current Activity: Continue Current Therapy: PT, OT Pt and Family Services: Other PFS Diagnostics: Repeat Labs in AM Anticipated Discharge: Assisted Living, Longterm VS, I&O, 24H, [facility] Vital Signs/I&O Vital Signs Date Time Temp Pulse Resp B/P (MAP) Pulse Ox O2 Delivery O2 Flow Rate FiO2 11/03/16 10:08 78 142/94 11/03/16 08:00 Room Air 11/03/16 06:00 98.7 16 94 10/31/16 15:30 3.0 I&O- Last 24 Hours up to 6 AM 11/03/16 06:00 Intake Total 1730 ml Output Total 800 ml Balance 930 ml Laboratory Data 24H LABS Laboratory Tests 2 11/02/16 17:04: Bedside Glucose (Misc Panel) 143H 11/02/16 20:11: Bedside Glucose (Misc Panel) 165H 11/03/16 05:42: Anion Gap 7L, Glomerular Filtration Rate 19.5L, Blood Urea Nitrogen 36H, Creatinine 2.51H, Sodium Level 140, Potassium Level 3.8, Chloride Level 105, Carbon Dioxide Level 28, Calcium Level 9.6, Aspartate Amino Transf (AST/SGOT) 18 , Alanine Aminotransferase (ALT/SGPT) 22, Alkaline Phosphatase 81, Total Bilirubin 1.1H, Total Protein 6.4, Albumin 3.2, Magnesium Level 2.2, Albumin/ Globulin Ratio 1.00 CBC/BMP Laboratory Tests 11/03/16 05:42 Red Blood Count 4.43, Mean Corpuscular Volume 88.2, Mean Corpuscular Hemoglobin 29.7, Mean Corpuscular Hemoglobin Concent 33.7, Red Cell Distribution Width 14.9 H, Calcium Level 9.6, Aspartate Amino Transf (AST/SGOT) 18, Alanine Aminotransferase (ALT/SGPT) 22, Alkaline Phosphatase 81, Total Bilirubin 1.1 H, Total Protein 6.4, Albumin 3.2 Microbiology Microbiology 10/30/16 Blood Culture - Preliminary, Resulted No Growth after 72 hours. All specime... 10/30/16 Blood Culture - Preliminary, Resulted No Growth after 72 hours. All specime... 11/01/16 Respiratory Virus Panel (PCR) (CHASIDY) - Final, Complete 10/30/16 Influenza Virus Type A Antigen - Final, Complete 10/30/16 Influenza Virus Type B Antigen - Final, Complete 10/30/16 Urine Culture - Final, Complete Proteus Mirabilis KIMBERLEE ROBERTS MD Nov 03, 2016 15:10
[2016-11-03 20:45] VITALS: BP 162/85
[2016-11-03] MEDS ORDERED: CEFDINIR 300 MG CAP (OMNICEF) PO SCH ×2 (21:00)
[2016-11-03] MEDS: QUEtiapine FUMARATE 12.5 MG HALF-TAB PO SCH (21:15)
[2016-11-03] MEDS: SIMVASTATIN 40 MG TAB PO SCH (21:15)
[2016-11-04] MEDS: IPRATROPIUM 0.5MG/ALBUTEROL 2.5MG INH SOL UD 3ML (DUONEB)(J7620) NEB SCH ×4 (01:09→20:02)
[2016-11-04] MEDS: LEVOTHYROXINE 50MCG TABLET (0.05MG) PO SCH (05:37)
[2016-11-04] MEDS: guaiFENesin 200 MG TAB PO SCH ×3 (05:37→21:37)
[2016-11-04 05:40] VITALS: BP 138/92
[2016-11-04 06:12] LABS: MEAN CORPUSCULAR HGB CONC 33.4 g/dl (32.0-36.5); MEAN CORPUSCULAR VOLUME 89.8 fl (80.0-96.0); WHITE BLOOD COUNT 10.3 K/mm3 (4.0-10.0)
[2016-11-04 06:38] LABS: ALBUMIN 3.2 GM/DL (3.2-5.2); ALBUMIN/GLOBULIN RATIO 1.03 (1.00-1.93); BILIRUBIN,TOTAL 1.3 MG/DL (0.2-1.0); CALCIUM LEVEL 9.1 MG/DL (8.8-10.2); CREATININE FOR GFR 2.39 MG/DL (0.55-1.02); GLOMERULAR FILTRATION RATE 20.6 (>32); POTASSIUM SERUM 3.7 MEQ/L (3.5-5.1); TOTAL PROTEIN 6.3 GM/DL (6.4-8.2)
[2016-11-04] MEDS: HumaLOG INSULIN (NovoLOG) PER UNIT SC SCH ×4 (07:29→20:22)
[2016-11-04] MEDS: COLCHICINE 0.6 MG TAB PO SCH (07:54)
[2016-11-04] MEDS: APIXABAN 2.5 MG TAB (ELIQUIS) PO SCH ×2 (07:55→20:28)
[2016-11-04] MEDS: ESCITALOPRAM OXALATE 10 MG TAB (LEXAPRO) PO SCH (07:55)
[2016-11-04] MEDS: PANTOPRAZOLE 40MG TAB (PROTONIX) PO SCH (07:56)
[2016-11-04] MEDS: VITAMIN D 1,000 INTERNATIONAL UNITS TABLET PO SCH (07:56)
[2016-11-04] MEDS: SENOKOT S TAB PO SCH ×2 (07:57→20:28)
[2016-11-04] MEDS: ATENOLOL 50 MG TAB PO SCH ×2 (07:57→20:28)
[2016-11-04 08:00] VITALS: BP 168/80
[2016-11-04] MEDS: TORSEMIDE 5MG TABLET PO SCH (08:05)
[2016-11-04 14:00] VITALS: BP 142/84
--- NOTE | 2016-11-04 14:53 | IPNPDOC ---
Subjective Date Seen The patient was seen on 11/04/16. Subjective Chief Complaint/HPI The patient is a 81-year-old female admitted with a reason for visit of Diastolic Chf/Pneumonia. Events since last encounter Feeling well, no complaint of pain, chest pain, shortness of breath, misses , son (#7?) at bedside Pulmonary: Denies: Dyspnea, Cough Cardiovascular: Denies: Chest Pain Gastrointestinal: Denies: Nausea, Vomiting, Abdominal Pain Objective Physical Examination General Exam: Positive: Alert, Cooperative, No Acute Distress Eye Exam: Negative: Sclera icteric ENT Exam: Positive: Mucous membr. moist/pink Chest Exam: Positive: Clear to auscultation, Diminished, Negative: Rales, Rhonchi, Wheezing Heart Exam: Positive: Rate Normal, Irregular Rhythm, Normal S1, Normal S2 Telemetry: Positive: Atrial fibrillation Abdomen Exam: Positive: Normal bowel sounds, Soft, Negative: Tenderness Extremity Exam: Negative: Edema Psych Exam: Negative: Oriented x 3 Assessment /Plan Problems (1) Diastolic CHF Status: Acute Response to Treatment: Improving Discussed With: Patient, Family with Pt Consent Problem Specific Plan: Monitor Clinically Problem Text: Grossly compensated. Off IV lasix. started torsemide (11/03/16) (2) Pneumonia Status: Acute Response to Treatment: Improving Discussed With: Patient, Family with Pt Consent Problem Specific Plan: Monitor Clinically Problem Text: Respiratory panel neg sputum sample never obtained Completed course of antibiotics (3) Falls frequently Status: Chronic Discussed With: Patient, Family with Pt Consent Problem Specific Plan: Consult Specialist Problem Text: PT/OT eval/treat- discussed at multidisciplinary rounds Plan for placement- I discussed with Antonio gaspar, in person (4) Weakness Status: Chronic (5) Dementia Status: Chronic Problem Text: continue seroquel and lexapro as per home regimen plan for placement (6) Diabetes Status: Chronic Problem Text: insulin sliding scale (7) Hypothyroid Status: Chronic Problem Text: continue synthroid (8) CKD (chronic kidney disease) Status: Chronic Problem Text: acute on chronic kidney disease. torsemide on hold. ARB on hold Consider nephrology consult depending on clinical course, cr improving today (9) CAD (coronary artery disease) Status: Chronic Problem Text: continue zocor, atenolol (10) Dyslipidemia Status: Chronic Problem Text: Zocor (11) Upper GI bleed Status: Chronic Problem Text: History of upper gi bleed secondary to gastric ulcer (12) MONIQUE (obstructive sleep apnea) Status: Chronic Problem Specific Plan: Monitor Clinically (13) HTN (hypertension) Status: Chronic Problem Specific Plan: Monitor Clinically Problem Text: Continue with atenolol with hold parameters ARB on hold secondary to LES/CKD (14) Atrial fibrillation Status: Chronic Problem Specific Plan: Monitor Clinically Problem Text: rate controlled, anticoagulated with eliquis (15) Gout Status: Chronic Problem Specific Plan: Monitor Clinically Problem Text: colchicine (16) CKD (chronic kidney disease), stage IV Status: Chronic Problem Specific Plan: Repeat Labs Plan/VTE VTE Prophylaxis Ordered?: Yes (eliquis) VS, I&O, 24H, Fishbone Vital Signs/I&O Vital Signs Date Time Temp Pulse Resp B/P (MAP) Pulse Ox O2 Delivery O2 Flow Rate FiO2 11/04/16 10:00 Room Air 11/04/16 08:00 70 168/80 (109) 11/04/16 05:40 97.4 17 92 10/31/16 15:30 3.0 I&O- Last 24 Hours up to 6 AM 11/04/16 06:00 Intake Total 770 ml Output Total 900 ml Balance -130 ml Laboratory Data 24H LABS Laboratory Tests 2 11/03/16 16:43: Bedside Glucose (Misc Panel) 114H 11/03/16 20:21: Bedside Glucose (Misc Panel) 194H 11/04/16 05:59: Anion Gap 8, Glomerular Filtration Rate 20.6L, Blood Urea Nitrogen 32H, Creatinine 2.39H, Sodium Level 140, Potassium Level 3.7, Chloride Level 105, Carbon Dioxide Level 27, Calcium Level 9.1, Aspartate Amino Transf (AST/SGOT) 21 , Alanine Aminotransferase (ALT/SGPT) 23, Alkaline Phosphatase 78, Total Bilirubin 1.3H, Total Protein 6.3L, Albumin 3.2, Magnesium Level 2.0, Albumin/ Globulin Ratio 1.03 11/04/16 11:30: Bedside Glucose (Misc Panel) 148H CBC/BMP Laboratory Tests 11/04/16 05:59 Red Blood Count 4.52, Mean Corpuscular Volume 89.8, Mean Corpuscular Hemoglobin 30.0, Mean Corpuscular Hemoglobin Concent 33.4, Red Cell Distribution Width 15.0 H, Calcium Level 9.1, Aspartate Amino Transf (AST/SGOT) 21, Alanine Aminotransferase (ALT/SGPT) 23, Alkaline Phosphatase 78, Total Bilirubin 1.3 H, Total Protein 6.3 L, Albumin 3.2 Microbiology Microbiology 10/30/16 Blood Culture - Final, Complete NO GROWTH AFTER 5 DAYS 10/30/16 Blood Culture - Final, Complete NO GROWTH AFTER 5 DAYS 11/01/16 Respiratory Virus Panel (PCR) (CHASIDY) - Final, Complete 10/30/16 Influenza Virus Type A Antigen - Final, Complete 10/30/16 Influenza Virus Type B Antigen - Final, Complete 10/30/16 Urine Culture - Final, Complete Proteus Mirabilis KIMBERLEE ROBERTS MD Nov 04, 2016 14:53
[2016-11-04 20:15] VITALS: BP 175/82
[2016-11-04] MEDS: SIMVASTATIN 40 MG TAB PO SCH (20:28)
[2016-11-04] MEDS: QUEtiapine FUMARATE 12.5 MG HALF-TAB PO SCH (20:28)
[2016-11-05] MEDS: IPRATROPIUM 0.5MG/ALBUTEROL 2.5MG INH SOL UD 3ML (DUONEB)(J7620) NEB SCH ×4 (02:00→19:48)
[2016-11-05] MEDS: LEVOTHYROXINE 50MCG TABLET (0.05MG) PO SCH (05:31)
[2016-11-05] MEDS: guaiFENesin 200 MG TAB PO SCH ×3 (05:31→21:46)
[2016-11-05 05:50] VITALS: BP 172/78
[2016-11-05] MEDS: ATENOLOL 50 MG TAB PO SCH ×2 (08:57→21:46)
[2016-11-05] MEDS: HumaLOG INSULIN (NovoLOG) PER UNIT SC SCH ×4 (08:57→21:00)
[2016-11-05] MEDS: COLCHICINE 0.6 MG TAB PO SCH (08:57)
[2016-11-05] MEDS: VITAMIN D 1,000 INTERNATIONAL UNITS TABLET PO SCH (08:58)
[2016-11-05] MEDS: APIXABAN 2.5 MG TAB (ELIQUIS) PO SCH ×2 (08:58→21:46)
[2016-11-05] MEDS: TORSEMIDE 5MG TABLET PO SCH (08:58)
[2016-11-05] MEDS: ESCITALOPRAM OXALATE 10 MG TAB (LEXAPRO) PO SCH (08:58)
[2016-11-05] MEDS: PANTOPRAZOLE 40MG TAB (PROTONIX) PO SCH (08:58)
[2016-11-05] MEDS: SENOKOT S TAB PO SCH ×2 (08:58→21:46)
[2016-11-05] MEDS: SIMVASTATIN 40 MG TAB PO SCH (21:46)
[2016-11-05] MEDS: QUEtiapine FUMARATE 12.5 MG HALF-TAB PO SCH (21:46)
[2016-11-06] MEDS: IPRATROPIUM 0.5MG/ALBUTEROL 2.5MG INH SOL UD 3ML (DUONEB)(J7620) NEB SCH ×4 (02:00→20:00)
[2016-11-06 05:25] VITALS: BP 173/70
[2016-11-06] MEDS: guaiFENesin 200 MG TAB PO SCH ×3 (05:43→22:00)
[2016-11-06] MEDS: LEVOTHYROXINE 50MCG TABLET (0.05MG) PO SCH (05:43)
[2016-11-06 06:29] LABS: MEAN CORPUSCULAR HEMOGLOBIN 29.9 pg (27.0-33.0); MEAN CORPUSCULAR VOLUME 87.9 fl (80.0-96.0); RED CELL DISTRIBUTION WIDTH 15.4 % (11.5-14.5); WHITE BLOOD COUNT 9.8 K/mm3 (4.0-10.0)
[2016-11-06 06:55] LABS: ALBUMIN 3.2 GM/DL (3.2-5.2); ALBUMIN/GLOBULIN RATIO 1.03 (1.00-1.93); BILIRUBIN,TOTAL 1.3 MG/DL (0.2-1.0); CALCIUM LEVEL 9.4 MG/DL (8.8-10.2); CREATININE FOR GFR 2.26 MG/DL (0.55-1.02); MAGNESIUM LEVEL 2.2 MG/DL (1.8-2.4); POTASSIUM SERUM 3.4 MEQ/L (3.5-5.1); TOTAL PROTEIN 6.3 GM/DL (6.4-8.2)
[2016-11-06] MEDS: HumaLOG INSULIN (NovoLOG) PER UNIT SC SCH ×4 (07:30→21:00)
[2016-11-06] MEDS: TORSEMIDE 5MG TABLET PO SCH (08:59)
[2016-11-06] MEDS: COLCHICINE 0.6 MG TAB PO SCH (08:59)
[2016-11-06] MEDS: PANTOPRAZOLE 40MG TAB (PROTONIX) PO SCH (08:59)
[2016-11-06] MEDS: ESCITALOPRAM OXALATE 10 MG TAB (LEXAPRO) PO SCH (09:00)
[2016-11-06] MEDS: VITAMIN D 1,000 INTERNATIONAL UNITS TABLET PO SCH (09:00)
[2016-11-06] MEDS: APIXABAN 2.5 MG TAB (ELIQUIS) PO SCH ×2 (09:00→21:03)
[2016-11-06] MEDS: ATENOLOL 50 MG TAB PO SCH ×2 (09:00→21:11)
[2016-11-06] MEDS: SENOKOT S TAB PO SCH ×2 (09:00→21:03)
[2016-11-06] MEDS ORDERED: POTASSIUM CHLORIDE 10 MEQ SR TABLET PO ONE (13:00)
[2016-11-06] MEDS: QUEtiapine FUMARATE 12.5 MG HALF-TAB PO SCH (21:03)
[2016-11-06] MEDS: SIMVASTATIN 40 MG TAB PO SCH (21:03)
[2016-11-07] MEDS: IPRATROPIUM 0.5MG/ALBUTEROL 2.5MG INH SOL UD 3ML (DUONEB)(J7620) NEB SCH ×4 (01:37→19:42)
[2016-11-07] MEDS: guaiFENesin 200 MG TAB PO SCH ×3 (05:27→21:44)
[2016-11-07] MEDS: LEVOTHYROXINE 50MCG TABLET (0.05MG) PO SCH (05:29)
[2016-11-07 06:00] VITALS: BP 157/96
[2016-11-07] MEDS: HumaLOG INSULIN (NovoLOG) PER UNIT SC SCH ×4 (08:26→21:00)
[2016-11-07] MEDS: TORSEMIDE 5MG TABLET PO SCH (08:27)
[2016-11-07] MEDS: APIXABAN 2.5 MG TAB (ELIQUIS) PO SCH ×2 (08:27→21:44)
[2016-11-07] MEDS: SENOKOT S TAB PO SCH ×2 (08:27→21:44)
[2016-11-07] MEDS: VITAMIN D 1,000 INTERNATIONAL UNITS TABLET PO SCH (08:27)
[2016-11-07] MEDS: COLCHICINE 0.6 MG TAB PO SCH (08:27)
[2016-11-07] MEDS: ESCITALOPRAM OXALATE 10 MG TAB (LEXAPRO) PO SCH (08:28)
[2016-11-07] MEDS: ATENOLOL 50 MG TAB PO SCH ×2 (08:28→21:54)
[2016-11-07] MEDS: PANTOPRAZOLE 40MG TAB (PROTONIX) PO SCH (08:28)
[2016-11-07] MEDS: SIMVASTATIN 40 MG TAB PO SCH (21:44)
[2016-11-07] MEDS: QUEtiapine FUMARATE 12.5 MG HALF-TAB PO SCH (21:53)
[2016-11-08] MEDS: guaiFENesin 200 MG TAB PO SCH ×3 (05:16→21:55)
[2016-11-08] MEDS: LEVOTHYROXINE 50MCG TABLET (0.05MG) PO SCH (05:33)
[2016-11-08 06:00] VITALS: BP 143/95
[2016-11-08] MEDS: IPRATROPIUM 0.5MG/ALBUTEROL 2.5MG INH SOL UD 3ML (DUONEB)(J7620) NEB SCH ×3 (07:09→20:08)
[2016-11-08] MEDS: ATENOLOL 50 MG TAB PO SCH ×2 (09:10→22:03)
[2016-11-08] MEDS: VITAMIN D 1,000 INTERNATIONAL UNITS TABLET PO SCH (09:10)
[2016-11-08] MEDS: TORSEMIDE 5MG TABLET PO SCH (09:10)
[2016-11-08] MEDS: COLCHICINE 0.6 MG TAB PO SCH (09:10)
[2016-11-08] MEDS: SENOKOT S TAB PO SCH ×2 (09:11→21:54)
[2016-11-08] MEDS: HumaLOG INSULIN (NovoLOG) PER UNIT SC SCH ×4 (09:11→21:48)
[2016-11-08] MEDS: APIXABAN 2.5 MG TAB (ELIQUIS) PO SCH ×2 (09:11→22:04)
[2016-11-08] MEDS: ESCITALOPRAM OXALATE 10 MG TAB (LEXAPRO) PO SCH (09:11)
[2016-11-08] MEDS: PANTOPRAZOLE 40MG TAB (PROTONIX) PO SCH (09:11)
[2016-11-08] MEDS: SIMVASTATIN 40 MG TAB PO SCH (21:54)
[2016-11-08] MEDS: QUEtiapine FUMARATE 12.5 MG HALF-TAB PO SCH (21:54)
[2016-11-08 22:44] VITALS: BP 128/81
[2016-11-09] MEDS: LEVOTHYROXINE 50MCG TABLET (0.05MG) PO SCH (05:34)
[2016-11-09] MEDS: guaiFENesin 200 MG TAB PO SCH ×3 (05:34→21:47)
[2016-11-09 06:00] VITALS: BP 168/88
[2016-11-09] MEDS ORDERED: amLODIPine 10 MG TAB PO ONE (07:00)
[2016-11-09] MEDS: IPRATROPIUM 0.5MG/ALBUTEROL 2.5MG INH SOL UD 3ML (DUONEB)(J7620) NEB SCH ×3 (07:40→19:44)
[2016-11-09 07:41] VITALS: O2SAT 96
[2016-11-09] MEDS: NYSTATIN 100,000 UNITS/GM TOPICAL PWD 15 GM TOP SCH ×2 (08:27→21:48)
[2016-11-09] MEDS: HumaLOG INSULIN (NovoLOG) PER UNIT SC SCH ×4 (08:27→21:49)
[2016-11-09] MEDS: ATENOLOL 50 MG TAB PO SCH ×2 (08:27→21:48)
[2016-11-09] MEDS: PANTOPRAZOLE 40MG TAB (PROTONIX) PO SCH (08:28)
[2016-11-09] MEDS: TORSEMIDE 5MG TABLET PO SCH (08:28)
[2016-11-09] MEDS: VITAMIN D 1,000 INTERNATIONAL UNITS TABLET PO SCH (08:28)
[2016-11-09] MEDS: COLCHICINE 0.6 MG TAB PO SCH (08:28)
[2016-11-09] MEDS: APIXABAN 2.5 MG TAB (ELIQUIS) PO SCH ×2 (08:28→21:48)
[2016-11-09] MEDS: SENOKOT S TAB PO SCH ×2 (08:28→21:47)
[2016-11-09] MEDS: ESCITALOPRAM OXALATE 10 MG TAB (LEXAPRO) PO SCH (08:28)
[2016-11-09] MEDS: QUEtiapine FUMARATE 12.5 MG HALF-TAB PO SCH (21:47)
[2016-11-09] MEDS: SIMVASTATIN 40 MG TAB PO SCH (21:48)
[2016-11-10 06:00] VITALS: BP 124/58
[2016-11-10] MEDS ORDERED: amLODIPine 10 MG TAB As Ordered ONE (06:04)
[2016-11-10] MEDS: ATENOLOL 50 MG TAB PO SCH ×2 (06:08→22:16)
[2016-11-10] MEDS: LEVOTHYROXINE 50MCG TABLET (0.05MG) PO SCH (06:08)
[2016-11-10] MEDS: amLODIPine 10 MG TAB PO SCH (06:08)
[2016-11-10] MEDS: guaiFENesin 200 MG TAB PO SCH ×3 (06:10→22:14)
[2016-11-10] MEDS: IPRATROPIUM 0.5MG/ALBUTEROL 2.5MG INH SOL UD 3ML (DUONEB)(J7620) NEB SCH ×3 (07:33→19:38)
[2016-11-10 08:57] LABS: MEAN CORPUSCULAR HEMOGLOBIN 29.4 pg (27.0-33.0); MEAN CORPUSCULAR HGB CONC 32.8 g/dl (32.0-36.5); MEAN CORPUSCULAR VOLUME 89.9 fl (80.0-96.0); RED CELL DISTRIBUTION WIDTH 15.7 % (11.5-14.5); WHITE BLOOD COUNT 15.3 K/mm3 (4.0-10.0)
[2016-11-10 09:22] LABS: CALCIUM LEVEL 9.7 MG/DL (8.8-10.2); CREATININE FOR GFR 2.2 MG/DL (0.55-1.02); GLOMERULAR FILTRATION RATE 22.7 (>32); MAGNESIUM LEVEL 1.9 MG/DL (1.8-2.4)
[2016-11-10 09:57] VITALS: BP 122/62
[2016-11-10] MEDS: COLCHICINE 0.6 MG TAB PO SCH (09:57)
[2016-11-10] MEDS: VITAMIN D 1,000 INTERNATIONAL UNITS TABLET PO SCH (09:57)
[2016-11-10] MEDS: SENOKOT S TAB PO SCH ×2 (09:57→22:14)
[2016-11-10] MEDS: ESCITALOPRAM OXALATE 10 MG TAB (LEXAPRO) PO SCH (09:57)
[2016-11-10] MEDS: APIXABAN 2.5 MG TAB (ELIQUIS) PO SCH ×2 (09:57→22:14)
[2016-11-10] MEDS: HumaLOG INSULIN (NovoLOG) PER UNIT SC SCH ×4 (09:57→21:00)
[2016-11-10] MEDS: PANTOPRAZOLE 40MG TAB (PROTONIX) PO SCH (09:57)
[2016-11-10] MEDS: TORSEMIDE 5MG TABLET PO SCH (09:57)
[2016-11-10] MEDS: NYSTATIN 100,000 UNITS/GM TOPICAL PWD 15 GM TOP SCH ×2 (09:58→22:18)
--- NOTE | 2016-11-10 12:44 | REP ---
Clinical: Rhonchi. Technique: PA and lateral. Comparison: 10/30/2016. Findings: Stable cardiomegaly and diffuse chronic interstitial changes are appreciated. Superimposed basilar atelectasis cannot be excluded. No effusion. No pneumothorax. Skeletal structures intact. Impression: Stable cardiomegaly and chronic interstitial changes. Cannot exclude trace superimposed atelectasis. Signed by Josef Wright MD 11/10/2016 12:36 P
--- NOTE | 2016-11-10 15:32 | IPN ---
DATE: 11/10/2016 SUBJECTIVE: The patient is an 81-year-old female who was seen and examined at the bedside. The patient denies chest pain, orthopnea, or paroxysmal nocturnal dyspnea (PND). The patient also denies nausea, vomiting, diarrhea, or constipation. Dr. Vance has spoke with the patient's son (Antonio) regarding possible placement. At the time of visit, the patient's other son presented who expressed that they are in the process of paperwork for insurance. The patient is afebrile and denies chills or night sweats. OBJECTIVE: VITAL SIGNS: Temperature 98, pulse 78, respiratory rate 16, blood pressure 124/58, pulse oximetry 94% on room air. Total intake from yesterday 1335 mL, total output 750 mL. GENERAL APPEARANCE: The patient was sitting on the chair in no acute distress. The patient was awake, alert, and oriented to place and person but not to the time. HEENT: Normocephalic, atraumatic. Pupils are equal, round, and reactive to light. Oral mucosa is moist. No jugular venous distention (JVD) was noticed. HEART: The patient has irregular rhythm. However, the patient has normal S1, S2. LUNGS: The patient has scattered rhonchi at the base of the lung. However, no wheezing was noticed. The patient has good air movement. ABDOMEN: Positive bowel sounds in all quadrants. No tenderness to palpation. EXTREMITIES: The patient has mild pitting edema in both lower extremities. LABORATORY DATA: White blood cells 15.2, red blood cells 4.68, hemoglobin 13.8, hematocrit 42.1, MCV 89.9, MCH 29.4, MCHC 32.8, RDW 15.7, platelet count 173. Sodium 141, potassium 4, chloride 105, carbon dioxide 27, anion gap 9, BUN 27, creatinine 2.2, glomerular filtration rate 22.7, fasting glucose 128, calcium 9.7, magnesium 1.9, C-reactive protein 1.91. Blood culture is pending. Chest x-ray is pending. Urinalysis is pending. ASSESSMENT AND PLAN: 1. Leukocytosis. Today, the patient's white blood cells have increased to 15.3. However, the patient has a history of urinary tract infection (UTI), previous urine culture was positive for Proteus mirabilis and Escherichia (E) coli, as well as pneumonia. Therefore, I have ordered blood culture as well as urinalysis (UA) and chest x-ray. Result is pending at this time. The patient is on room air. 2. Diastolic congestive heart failure. The patient has the echocardiogram which was done on 10/30/[address] Cordero, which indicated left ventricular ejection fraction of 75%. At this time, the patient is on torsemide as well as atenolol 50 mg by mouth twice a day. 3. Pneumonia. The patient has completed treatment. At this time, the patient is asymptomatic. However, due to leukocytosis, I have ordered a chest x-ray and the result is pending at this time. 4. Frequent falls. This is a chronic issue. The patient has been evaluated by physical therapy (PT) and occupational therapy (OT). Dr. Vance has spoke with the patient's son, Antonio, in person regarding possible placement. According to other son, they are in the process of getting insurance. According to PT evaluation progress note, the patient can only be discharged to longterm facility versus home with 24/7 days a week services. 5. Weakness. This is a chronic issue. 6. Dementia. According to the patient's son, the patient is at baseline. 7. Depression. The patient is on Lexapro and Seroquel. 8. Diabetes. The patient is on sliding scale. 9. Hypothyroidism. We will continue the patient on current dosage of Synthroid. 10. Chronic kidney disease. At this time, the patient's creatinine is at baseline. We will continue monitoring the patient's renal function. Also, we will continue the patient on torsemide. The patient was on angiotensin-receptor linda (ARB). However, it was discontinued due to abnormal renal function. 11. Coronary artery disease. This is a chronic issue. The patient is on Zocor and atenolol. 12. Dyslipidemia. The patient is on Zocor. 13. Upper gastrointestinal (GI) bleeding. This is a chronic issue. The patient has a history of upper GI bleeding secondary to gastric ulcer. The patient is on Protonix 40 mg by mouth daily. 14. Obstructive sleep apnea (MONIQUE). This is a chronic issue. The patient's son informed me that the patient has continuous positive airway pressure (CPAP) at home. I requested that the patient's son bring her CPAP to the hospital and I put the order for the patient to use her CPAP at the hospital. 15. Hypertension. This is a chronic issue. At this time, the patient's blood pressure is stable. We will continue the patient on current dosage of torsemide as well as Norvasc 10 mg by mouth daily and atenolol 50 mg twice a day by mouth. 16. Atrial fibrillation. The patient is on Eliquis. The patient's rate is controlled. Also, we will continue the patient on current dosage of atenolol 50 mg by mouth twice a day. 17. Gout. The patient is stable at this time. We will continue the patient on colchicine. 18. Deep vein thrombosis (DVT) prophylaxis. The patient is on Eliquis. My preceptor for this patient encounter was Dr. Keren Arcos. The preceptor was physically present in the building during the encounter and was fully available as needed. All aspects of the patient interview, examination, medical decision making process, and medical care plan development were reviewed and approved by the preceptor. The preceptor is aware and concurs with the plan as stated in the body of this note and will attest to such by his/her co-signature.
[2016-11-10 22:00] VITALS: BP 147/67
[2016-11-10] MEDS: SIMVASTATIN 40 MG TAB PO SCH (22:13)
[2016-11-10] MEDS: QUEtiapine FUMARATE 12.5 MG HALF-TAB PO SCH (22:14)
[2016-11-11] MEDS: LEVOTHYROXINE 50MCG TABLET (0.05MG) PO SCH (05:55)
[2016-11-11] MEDS: guaiFENesin 200 MG TAB PO SCH ×3 (05:56→21:18)
[2016-11-11 06:00] VITALS: BP 177/97
[2016-11-11 06:44] VITALS: BP 144/77
[2016-11-11] MEDS: IPRATROPIUM 0.5MG/ALBUTEROL 2.5MG INH SOL UD 3ML (DUONEB)(J7620) NEB SCH ×3 (07:49→20:49)
[2016-11-11] MEDS: SENOKOT S TAB PO SCH ×2 (09:00→21:18)
[2016-11-11] MEDS: APIXABAN 2.5 MG TAB (ELIQUIS) PO SCH ×2 (09:39→21:18)
[2016-11-11] MEDS: ESCITALOPRAM OXALATE 10 MG TAB (LEXAPRO) PO SCH (09:39)
[2016-11-11] MEDS: COLCHICINE 0.6 MG TAB PO SCH (09:39)
[2016-11-11] MEDS: amLODIPine 10 MG TAB PO SCH (09:39)
[2016-11-11] MEDS: VITAMIN D 1,000 INTERNATIONAL UNITS TABLET PO SCH (09:39)
[2016-11-11] MEDS: TORSEMIDE 5MG TABLET PO SCH (09:39)
[2016-11-11] MEDS: PANTOPRAZOLE 40MG TAB (PROTONIX) PO SCH (09:39)
[2016-11-11] MEDS: ATENOLOL 50 MG TAB PO SCH ×2 (09:39→21:19)
[2016-11-11] MEDS: HumaLOG INSULIN (NovoLOG) PER UNIT SC SCH ×4 (09:40→21:00)
[2016-11-11] MEDS: NYSTATIN 100,000 UNITS/GM TOPICAL PWD 15 GM TOP SCH ×2 (09:41→21:20)
[2016-11-11] MEDS: SIMVASTATIN 40 MG TAB PO SCH (21:18)
[2016-11-11] MEDS: QUEtiapine FUMARATE 12.5 MG HALF-TAB PO SCH (21:18)
[2016-11-12] MEDS: LEVOTHYROXINE 50MCG TABLET (0.05MG) PO SCH (05:52)
[2016-11-12] MEDS: guaiFENesin 200 MG TAB PO SCH ×3 (05:52→21:50)
[2016-11-12 06:00] VITALS: BP 148/83
[2016-11-12] MEDS: IPRATROPIUM 0.5MG/ALBUTEROL 2.5MG INH SOL UD 3ML (DUONEB)(J7620) NEB SCH ×3 (08:00→20:02)
[2016-11-12] MEDS: HumaLOG INSULIN (NovoLOG) PER UNIT SC SCH ×4 (08:18→21:18)
[2016-11-12] MEDS: PANTOPRAZOLE 40MG TAB (PROTONIX) PO SCH (08:19)
[2016-11-12] MEDS: VITAMIN D 1,000 INTERNATIONAL UNITS TABLET PO SCH (08:19)
[2016-11-12] MEDS: TORSEMIDE 5MG TABLET PO SCH (08:19)
[2016-11-12] MEDS: APIXABAN 2.5 MG TAB (ELIQUIS) PO SCH ×2 (08:19→21:50)
[2016-11-12] MEDS: ESCITALOPRAM OXALATE 10 MG TAB (LEXAPRO) PO SCH (08:19)
[2016-11-12] MEDS: amLODIPine 10 MG TAB PO SCH (08:19)
[2016-11-12] MEDS: SENOKOT S TAB PO SCH ×2 (08:19→21:51)
[2016-11-12] MEDS: ATENOLOL 50 MG TAB PO SCH ×2 (08:19→21:51)
[2016-11-12] MEDS: COLCHICINE 0.6 MG TAB PO SCH (08:19)
[2016-11-12] MEDS: NYSTATIN 100,000 UNITS/GM TOPICAL PWD 15 GM TOP SCH ×2 (08:20→21:51)
[2016-11-12] MEDS: SIMVASTATIN 40 MG TAB PO SCH (21:50)
[2016-11-12] MEDS: QUEtiapine FUMARATE 12.5 MG HALF-TAB PO SCH (21:50)
[2016-11-13 06:00] VITALS: BP 144/82
[2016-11-13] MEDS: guaiFENesin 200 MG TAB PO SCH ×3 (06:24→21:48)
[2016-11-13] MEDS: LEVOTHYROXINE 50MCG TABLET (0.05MG) PO SCH (06:24)
[2016-11-13] MEDS: IPRATROPIUM 0.5MG/ALBUTEROL 2.5MG INH SOL UD 3ML (DUONEB)(J7620) NEB SCH ×3 (08:05→20:00)
[2016-11-13] MEDS: NYSTATIN 100,000 UNITS/GM TOPICAL PWD 15 GM TOP SCH ×2 (08:41→21:49)
[2016-11-13] MEDS: COLCHICINE 0.6 MG TAB PO SCH (08:42)
[2016-11-13] MEDS: TORSEMIDE 5MG TABLET PO SCH (08:42)
[2016-11-13] MEDS: HumaLOG INSULIN (NovoLOG) PER UNIT SC SCH ×4 (08:42→21:34)
[2016-11-13] MEDS: SENOKOT S TAB PO SCH ×2 (08:43→21:47)
[2016-11-13] MEDS: PANTOPRAZOLE 40MG TAB (PROTONIX) PO SCH (08:43)
[2016-11-13] MEDS: ATENOLOL 50 MG TAB PO SCH ×2 (08:43→21:48)
[2016-11-13] MEDS: amLODIPine 10 MG TAB PO SCH (08:43)
[2016-11-13] MEDS: APIXABAN 2.5 MG TAB (ELIQUIS) PO SCH ×2 (08:43→21:48)
[2016-11-13] MEDS: VITAMIN D 1,000 INTERNATIONAL UNITS TABLET PO SCH (08:43)
[2016-11-13] MEDS: ESCITALOPRAM OXALATE 10 MG TAB (LEXAPRO) PO SCH (08:43)
[2016-11-13] MEDS: QUEtiapine FUMARATE 12.5 MG HALF-TAB PO SCH (21:48)
[2016-11-13] MEDS: SIMVASTATIN 40 MG TAB PO SCH (21:48)
[2016-11-14] MEDS: guaiFENesin 200 MG TAB PO SCH ×3 (05:40→21:47)
[2016-11-14] MEDS: LEVOTHYROXINE 50MCG TABLET (0.05MG) PO SCH (05:40)
[2016-11-14 06:00] VITALS: BP 142/76
[2016-11-14] MEDS: IPRATROPIUM 0.5MG/ALBUTEROL 2.5MG INH SOL UD 3ML (DUONEB)(J7620) NEB SCH ×3 (07:19→19:54)
[2016-11-14] MEDS: TORSEMIDE 5MG TABLET PO SCH (09:31)
[2016-11-14] MEDS: COLCHICINE 0.6 MG TAB PO SCH (09:31)
[2016-11-14] MEDS: amLODIPine 10 MG TAB PO SCH (09:32)
[2016-11-14] MEDS: PANTOPRAZOLE 40MG TAB (PROTONIX) PO SCH (09:32)
[2016-11-14] MEDS: ESCITALOPRAM OXALATE 10 MG TAB (LEXAPRO) PO SCH (09:32)
[2016-11-14] MEDS: VITAMIN D 1,000 INTERNATIONAL UNITS TABLET PO SCH (09:32)
[2016-11-14] MEDS: SENOKOT S TAB PO SCH ×2 (09:32→20:08)
[2016-11-14] MEDS: APIXABAN 2.5 MG TAB (ELIQUIS) PO SCH ×2 (09:32→20:08)
[2016-11-14] MEDS: ATENOLOL 50 MG TAB PO SCH ×2 (09:32→20:08)
[2016-11-14] MEDS: NYSTATIN 100,000 UNITS/GM TOPICAL PWD 15 GM TOP SCH ×2 (09:33→20:09)
[2016-11-14] MEDS: HumaLOG INSULIN (NovoLOG) PER UNIT SC SCH ×4 (09:33→21:00)
[2016-11-14] MEDS: SIMVASTATIN 40 MG TAB PO SCH (20:08)
[2016-11-14] MEDS: QUEtiapine FUMARATE 12.5 MG HALF-TAB PO SCH (20:08)
[2016-11-15 06:00] VITALS: BP 158/80
[2016-11-15] MEDS: LEVOTHYROXINE 50MCG TABLET (0.05MG) PO SCH (06:32)
[2016-11-15] MEDS: guaiFENesin 200 MG TAB PO SCH ×3 (06:32→21:15)
[2016-11-15] MEDS: ATENOLOL 50 MG TAB PO SCH ×2 (07:48→21:16)
[2016-11-15] MEDS: SENOKOT S TAB PO SCH ×2 (07:48→21:15)
[2016-11-15] MEDS: PANTOPRAZOLE 40MG TAB (PROTONIX) PO SCH (07:49)
[2016-11-15] MEDS: TORSEMIDE 5MG TABLET PO SCH (07:49)
[2016-11-15] MEDS: ESCITALOPRAM OXALATE 10 MG TAB (LEXAPRO) PO SCH (07:49)
[2016-11-15] MEDS: VITAMIN D 1,000 INTERNATIONAL UNITS TABLET PO SCH (07:49)
[2016-11-15] MEDS: APIXABAN 2.5 MG TAB (ELIQUIS) PO SCH ×2 (07:49→21:15)
[2016-11-15] MEDS: NYSTATIN 100,000 UNITS/GM TOPICAL PWD 15 GM TOP SCH ×2 (07:49→21:17)
[2016-11-15] MEDS: COLCHICINE 0.6 MG TAB PO SCH (07:50)
[2016-11-15] MEDS: HumaLOG INSULIN (NovoLOG) PER UNIT SC SCH ×4 (07:50→21:00)
[2016-11-15] MEDS: amLODIPine 10 MG TAB PO SCH (07:51)
[2016-11-15] MEDS: IPRATROPIUM 0.5MG/ALBUTEROL 2.5MG INH SOL UD 3ML (DUONEB)(J7620) NEB SCH ×3 (07:56→19:50)
[2016-11-15 14:00] VITALS: BP 156/81
[2016-11-15] MEDS: QUEtiapine FUMARATE 12.5 MG HALF-TAB PO SCH (21:15)
[2016-11-15] MEDS: SIMVASTATIN 40 MG TAB PO SCH (21:16)
[2016-11-16] MEDS: LEVOTHYROXINE 50MCG TABLET (0.05MG) PO SCH (05:54)
[2016-11-16] MEDS: guaiFENesin 200 MG TAB PO SCH ×3 (05:54→20:57)
[2016-11-16 06:00] VITALS: BP 130/65
[2016-11-16] MEDS: IPRATROPIUM 0.5MG/ALBUTEROL 2.5MG INH SOL UD 3ML (DUONEB)(J7620) NEB SCH ×3 (07:11→19:57)
[2016-11-16] MEDS: NYSTATIN 100,000 UNITS/GM TOPICAL PWD 15 GM TOP SCH ×2 (08:22→20:57)
[2016-11-16] MEDS: COLCHICINE 0.6 MG TAB PO SCH (08:22)
[2016-11-16] MEDS: APIXABAN 2.5 MG TAB (ELIQUIS) PO SCH ×2 (08:23→20:55)
[2016-11-16] MEDS: VITAMIN D 1,000 INTERNATIONAL UNITS TABLET PO SCH (08:23)
[2016-11-16] MEDS: SENOKOT S TAB PO SCH ×2 (08:23→20:54)
[2016-11-16] MEDS: TORSEMIDE 5MG TABLET PO SCH (08:23)
[2016-11-16] MEDS: ESCITALOPRAM OXALATE 10 MG TAB (LEXAPRO) PO SCH (08:23)
[2016-11-16] MEDS: amLODIPine 10 MG TAB PO SCH (08:24)
[2016-11-16] MEDS: PANTOPRAZOLE 40MG TAB (PROTONIX) PO SCH (08:24)
[2016-11-16] MEDS: ATENOLOL 50 MG TAB PO SCH ×2 (08:24→20:54)
[2016-11-16] MEDS: HumaLOG INSULIN (NovoLOG) PER UNIT SC SCH ×4 (08:25→20:56)
[2016-11-16 13:28] LABS: MEAN CORPUSCULAR HEMOGLOBIN 29.4 pg (27.0-33.0); MEAN CORPUSCULAR VOLUME 89.3 fl (80.0-96.0); RED CELL DISTRIBUTION WIDTH 14.8 % (11.5-14.5); WHITE BLOOD COUNT 8.1 K/mm3 (4.0-10.0)
[2016-11-16 14:21] LABS: CALCIUM LEVEL 9.4 MG/DL (8.8-10.2); CREATININE FOR GFR 2.23 MG/DL (0.55-1.02); GLOMERULAR FILTRATION RATE 22.3 (>32)
[2016-11-16] MEDS: QUEtiapine FUMARATE 12.5 MG HALF-TAB PO SCH (20:54)
[2016-11-16] MEDS: SIMVASTATIN 40 MG TAB PO SCH (20:54)
[2016-11-16 22:00] VITALS: BP 164/77
[2016-11-17 06:00] VITALS: BP_SYST 172; BP_SYST 174; BP_DIAS 82; BP_DIAS 98
[2016-11-17] MEDS: LEVOTHYROXINE 50MCG TABLET (0.05MG) PO SCH (06:12)
[2016-11-17] MEDS: guaiFENesin 200 MG TAB PO SCH ×3 (06:12→21:17)
--- NOTE | 2016-11-17 07:15 | IPN ---
DATE: 11/16/2016 The patient tells me that she feels great. She has no complaints. She tells me that she likes being in the hospital and she does not want to leave here. She denies chest pain, shortness of breath, fevers, chills, nausea, vomiting, or diarrhea. OBJECTIVE: VITAL SIGNS: Temperature 97.3, pulse 87, respiratory rate 19, blood pressure 130/65 and oxygen saturation 97% on room air. GENERAL: She is a morbidly obese elderly female sitting in front of the television in a recliner eating her lunch. She does not appear to be in any acute distress. HEENT: Cranials II-XII are grossly intact. She does have a large neck. No elevation of CVP. CARDIOVASCULAR: S1, S2, irregularly irregular. She is not tachycardic. RESPIRATORY EXAM: Quite clear, but distant secondary to body habitus. ABDOMINAL EXAM: Grossly obese. Bowel sounds present. The abdomen is soft and nontender. EXTREMITIES: No clubbing, cyanosis or appreciable edema at this time. LABORATORY STUDIES: WBC 8.1, hemoglobin 12.8, hematocrit 38.7 and platelet count 222. Chemistry panel is currently pending. No new microbiology. No new imaging. ASSESSMENT AND PLAN: This is an 81-year-old female currently awaiting snf facility placement initially admitted for decompensated diastolic congestive heart failure as well as pneumonia and urinary tract infection which have resolved. PROBLEMS: 1. Diastolic congestive heart failure with preserved ejection fraction. The patient is on torsemide, atenolol, Norvasc. She appears well compensated today. 2. Pneumonia. She completed a course of antibiotics, resolved. 3. Urinary tract infection. She completed a course of antibiotics, resolved. 4. Frequent falls. This is a chronic issue. The patient and her son are currently working out the financials with [facility] to obtain snf facility versus home 24-7; however, her discharge home appears to be less and less likely as time goes on. 5. Dementia, stable. The patient is oriented today. The patient is on Seroquel. 6. Type 2 diabetes. Continue sliding scale insulin. 7. Hypothyroidism. Continue with Synthroid. 8. Chronic kidney disease. Awaiting BMP today. She has been on standing diuretic. Will continue to monitor. She was previously on an ARB, but it was discontinued secondary to acute kidney injury. 9. Coronary artery disease. She is on Zocor, atenolol. She is not on an aspirin. Will defer to her outpatient providers. 10. History of a gastric ulcer. She is on Protonix. 11. Obstructive sleep apnea. She is okay to use her home CPAP. 12. Hypertension. Controlled. She is on Norvasc and atenolol. 13. Atrial fibrillation. Once again, she is rate controlled with atenolol. She is anticoagulated with Eliquis. 14. Gout. The patient is on colchicine. 15. Deep vein thrombosis (DVT) prophylaxis. She is therapeutically anticoagulated with Eliquis. 16. Vitamin D deficiency. She is on supplementation. 17. Mood disorder. The patient is on Lexapro.
[2016-11-17] MEDS: IPRATROPIUM 0.5MG/ALBUTEROL 2.5MG INH SOL UD 3ML (DUONEB)(J7620) NEB SCH ×3 (07:48→20:01)
[2016-11-17] MEDS: HumaLOG INSULIN (NovoLOG) PER UNIT SC SCH ×4 (08:03→21:00)
[2016-11-17] MEDS: TORSEMIDE 5MG TABLET PO SCH (09:48)
[2016-11-17] MEDS: ESCITALOPRAM OXALATE 10 MG TAB (LEXAPRO) PO SCH (09:48)
[2016-11-17] MEDS: COLCHICINE 0.6 MG TAB PO SCH (09:48)
[2016-11-17] MEDS: PANTOPRAZOLE 40MG TAB (PROTONIX) PO SCH (09:48)
[2016-11-17] MEDS: APIXABAN 2.5 MG TAB (ELIQUIS) PO SCH ×2 (09:49→21:18)
[2016-11-17] MEDS: SENOKOT S TAB PO SCH ×2 (09:49→21:18)
[2016-11-17] MEDS: amLODIPine 10 MG TAB PO SCH (10:00)
[2016-11-17] MEDS: ATENOLOL 50 MG TAB PO SCH ×2 (10:02→21:18)
[2016-11-17] MEDS: NYSTATIN 100,000 UNITS/GM TOPICAL PWD 15 GM TOP SCH ×2 (10:04→21:19)
[2016-11-17] MEDS: VITAMIN D 1,000 INTERNATIONAL UNITS TABLET PO SCH (10:05)
[2016-11-17 20:45] VITALS: BP 168/84
[2016-11-17] MEDS: QUEtiapine FUMARATE 12.5 MG HALF-TAB PO SCH (21:18)
[2016-11-17] MEDS: SIMVASTATIN 40 MG TAB PO SCH (21:18)
[2016-11-18] MEDS: LEVOTHYROXINE 50MCG TABLET (0.05MG) PO SCH (05:23)
[2016-11-18] MEDS: guaiFENesin 200 MG TAB PO SCH (05:23)
[2016-11-18 06:30] VITALS: BP 166/80
[2016-11-18] MEDS: HumaLOG INSULIN (NovoLOG) PER UNIT SC SCH ×2 (07:30→12:26)
[2016-11-18] MEDS: IPRATROPIUM 0.5MG/ALBUTEROL 2.5MG INH SOL UD 3ML (DUONEB)(J7620) NEB SCH (07:35)
[2016-11-18 08:35] VITALS: BP 168/86
[2016-11-18] MEDS: VITAMIN D 1,000 INTERNATIONAL UNITS TABLET PO SCH (08:35)
[2016-11-18] MEDS: ATENOLOL 50 MG TAB PO SCH (08:35)
[2016-11-18] MEDS: amLODIPine 10 MG TAB PO SCH (08:35)
[2016-11-18] MEDS: SENOKOT S TAB PO SCH (08:35)
[2016-11-18] MEDS: TORSEMIDE 5MG TABLET PO SCH (08:35)
[2016-11-18] MEDS: ESCITALOPRAM OXALATE 10 MG TAB (LEXAPRO) PO SCH (08:35)
[2016-11-18] MEDS: APIXABAN 2.5 MG TAB (ELIQUIS) PO SCH (08:35)
[2016-11-18] MEDS: PANTOPRAZOLE 40MG TAB (PROTONIX) PO SCH (08:35)
[2016-11-18] MEDS: COLCHICINE 0.6 MG TAB PO SCH (08:35)
[2016-11-18] MEDS: NYSTATIN 100,000 UNITS/GM TOPICAL PWD 15 GM TOP SCH (08:36)
[2016-11-18] MEDS ORDERED: NYST10PW TOP (11:53)
[2016-11-18] MEDS ORDERED: SENN1TAB2 PO (11:53)
[2016-11-18] MEDS ORDERED: AMLO10TA2 PO (11:53)
[2016-11-18] MEDS ORDERED: GUAI20TA PO (11:53)
--- NOTE | 2016-11-21 08:38 | DSES ---
DATE OF ADMISSION: 10/30/2016 DATE OF DISCHARGE: 11/18/2016 PRIMARY CARE PROVIDER: Omid Ellis MD DISCHARGE DIAGNOSES: 1. Dementia. 2. Diastolic congestive heart failure (CHF) with exacerbation, resolved. 3. Pneumonia. Completed antibiotics. 4. Urinary tract infection. Completed antibiotics. 5. Generalized deconditioning and frequent falls and gait instability. 6. Diabetes. 7. Hypothyroidism. 8. Chronic kidney disease. 9. Coronary artery disease. 10. Obstructive sleep apnea (MONIQUE) on CPAP. 11. Hypertension. 12. Atrial fibrillation. Rate controlled on Eliquis. 13. Gout. 14. Vitamin D deficiency. 15. Mood disorder. 16. History of gastric ulcer. DISCHARGE MEDICATIONS: - amlodipine 10 mg daily - guaifenesin 400 mg by mouth every 8 hours - nystatin powder topically twice a day - senna plus one tablet by mouth twice a day - albuterol sulfate one inhalation four times a day - albuterol ipratropium nebulizer solution one four times a day - Eliquis 2.5 mg by mouth twice a day - atenolol 50 mg by mouth twice a day - cholecalciferol 1000 units by mouth daily - colchicine 0.6 mg by mouth daily - Lexapro 10 mg by mouth daily - Synthroid 50 mcg by mouth daily - pantoprazole 40 mg by mouth daily - quetiapine 12.5 mg by mouth at bedtime - simvastatin 40 mg at bedtime - torsemide 5 mg by mouth daily HOSPITAL COURSE: This is an 81-year-old female who presented to the hospital with cough, shortness of breath, and fall. The patient had significantly advanced dementia so most of the history was given by family on presentation. The patient at baseline used to walk with a walker and frequent falls, about once a week, with urinary and bowel incontinence. This time the patient had been having persistent cough overnight with shortness of breath and had sick contact with the patient's who had pneumonia and also had nausea and vomiting. Subsequently the patient was found down on the ground with the walker right next to her without any loss of consciousness. The patient was in the process of going to the bathroom when she fell. The patient was found to be febrile in the emergency room and was diagnosed with pneumonia and urinary tract infection. The patient was also noted to have diastolic congestive heart failure (CHF) exacerbation. Patient was admitted to the hospital today with antibiotics for pneumonia and a urinary tract infection and also diuresis for her congestive heart failure (CHF). Subsequently, the patient became euvolemic and IV diuretics were discontinued. The patient finished a course of antibiotics. The patient was found to have gait instability, generalized deconditioning resulting in frequent falls at home. Patient was evaluated by physical therapy and was recommended for custodial facility versus 24/ care. The patient was subsequently accepted at [facility] and was discharged there on November 18, 2016. On the day of discharge, the patient's vitals were stable. The patient did not offer any complaints. During her hospitalization, the patient's sugars were noted to be running low. The patient was taken off oral and hypoglycemic agents, both glipizide and Januvia. The patient's valsartan was also discontinued because of chronic kidney disease stage 4 and had some acute kidney injury and chronic kidney disease on presentation. She had a creatinine of 3.1 on presentation and it was felt her usual creatinine runs around 2.2 to 2.5. The decision regarding restarting of valsartan I would leave with the primary care provider. PHYSICAL EXAMINATION: VITAL SIGNS: Temperature 97.5, pulse 84, respiratory rate 17, blood pressure 168/86, pulse oximetry 97% in room air. GENERAL: Patient awake, alert but intermittently confused. HEENT: She is morbidly obese. Normocephalic, atraumatic. Moist mucous membranes. Anicteric eyes. CHEST: Clear to auscultation, however breath sounds are very distant because of body habtius. CARDIOVASCULAR: S1 and S2 regular, no rub, murmur or gallop. ABDOMEN: Obese. Bowel sounds present. Soft, nontender. EXTREMITIES: No edema. LABORATORY DATA: From 11/16/2016 - WBC 8.1, hemoglobin 12.8, platelets 222, sodium 143, potassium 4, chloride 106, bicarb 28, BUN 26, creatinine 2.23, glucose 135, calcium 9.4. DISPOSITION: Patient is discharged to [facility]. DISCHARGE INSTRUCTIONS: Patient to followup with MD at the custodial facility. Carbohydrate consistent diet. Activity as tolerated.
== END 2016-11-18 12:33 | DRG 291 ==
LOC: EDBD 01:07 → M ED 02:46 → M ED INP 06:01 → M PCU 06:35 → M MSPAV 11-02 18:11
PROVIDERS: ADMIT Hospitalist; ATTEND Internal Medicine Nephrology
DX: I13.0 Hypertensive heart and chronic kidney disease with heart failure and stage 1 through stage 4 chronic kidney disease, or unspecified chronic kidney disease (principal); I50.33 Acute on chronic diastolic (congestive) heart failure; J15.9 Unspecified bacterial pneumonia; N18.4 Chronic kidney disease, stage 4 (severe); N39.0 Urinary tract infection, site not specified; Z66 Do not resuscitate; E11.9 Type 2 diabetes mellitus without complications; E03.9 Hypothyroidism, unspecified; F03.90 Unspecified dementia, unspecified severity, without behavioral disturbance, psychotic disturbance, mood disturbance, and anxiety; G47.33 Obstructive sleep apnea (adult) (pediatric); I48.91 Unspecified atrial fibrillation; B96.4 Proteus (mirabilis) (morganii) as the cause of diseases classified elsewhere; K21.9 Gastro-esophageal reflux disease without esophagitis; E78.5 Hyperlipidemia, unspecified; M10.9 Gout, unspecified; I25.10 Atherosclerotic heart disease of native coronary artery without angina pectoris; R29.6 Repeated falls; R26.81 Unsteadiness on feet; F32.9 Major depressive disorder, single episode, unspecified; Z79.01 Long term (current) use of anticoagulants; Z79.899 Other long term (current) drug therapy; Z88.6 Allergy status to analgesic agent; Z96.653 Presence of artificial knee joint, bilateral; Z79.84 Long term (current) use of oral hypoglycemic drugs; Z91.19 Patient's noncompliance with other medical treatment and regimen

== ENCOUNTER → 2016-11-23 | Outpatient (REF) ==
[~2016-11-23] MED LIST changes: +ACET1TAB17 PO; +ALBU83IN INH; +AMLO10TA2 PO; +ATRO1OPD PO; +DEPA125C PO; +DULC10SU2 PR; +ELIQ2.5T PO; +ENEMENE6 PR; +GLIP2.5T6 PO; +GUAI20TA PO; +GUAI400T6 PO; +IPRASOL4 IN; +LEXA1TAB PO; +LORA1TAB12 PO; +MACR100C43 PO; +MILKSUS PO; +MORP1SOL PO; +NAME21CA PO; +NYST10PW TOP; +QUET1TAB7 PO; +RANI15TA PO; +SENN1TAB2 PO; +SENN8.6T7 PO; +TORS20TA2 PO; +TORS5TAB2 PO; +VALS1TAB47 PO
[2016-11-24 11:32] LABS: MEAN CORPUSCULAR HEMOGLOBIN 29.5 pg (27.0-33.0); MEAN CORPUSCULAR HGB CONC 32.6 g/dl (32.0-36.5); MEAN CORPUSCULAR VOLUME 90.3 fl (80.0-96.0); RED CELL DISTRIBUTION WIDTH 15.2 % (11.5-14.5); WHITE BLOOD COUNT 9.5 K/mm3 (4.0-10.0)
[2016-11-24 11:54] LABS: CALCIUM LEVEL 9.2 MG/DL (8.8-10.2); CREATININE FOR GFR 2.32 MG/DL (0.55-1.02); GLOMERULAR FILTRATION RATE 21.3 (>32); POTASSIUM SERUM 3.4 MEQ/L (3.5-5.1)
== END ==
PROVIDERS: ATTEND Family Medicine
DX: I50.9 Heart failure, unspecified (principal)

== ENCOUNTER 2016-11-30 15:22 | Inpatient (IN) | payer MEDICARE, OTHER, MEDICAID ==
[~2016-11-30] VITALS: Ht 157.5 cm; Wt 76.4 kg
[~2016-11-30 15:22] MED LIST changes: -ACET1TAB17 PO; -ATRO1OPD PO; -DEPA125C PO; -DULC10SU2 PR; -ENEMENE6 PR; -GUAI400T6 PO; -LORA1TAB12 PO; -MILKSUS PO; -MORP1SOL PO; -RANI15TA PO; -SENN8.6T7 PO; -TORS20TA2 PO
[2016-11-30] MEDS ORDERED: ENEMENE6 PR (15:55)
[2016-11-30] MEDS ORDERED: POTA10CA PO (15:55)
[2016-11-30] MEDS ORDERED: RANI15TA PO (15:55)
[2016-11-30] MEDS ORDERED: MILKSUS PO (15:55)
[2016-11-30] MEDS ORDERED: TORS20TA2 PO (15:55)
[2016-11-30] MEDS ORDERED: ACET1TAB17 PO (15:55)
[2016-11-30] MEDS ORDERED: DULC10SU2 PR (15:55)
[2016-11-30] MEDS ORDERED: DEPA125C PO (15:55)
--- NOTE | 2016-11-30 17:39 | REP ---
Head CT without contrast: History: Right-sided weakness. Comparison study: 10/30/2016. Findings: Bone window settings demonstrate an intact bony calvarium. There is fairly heavy vascular calcification in the distal vertebral and distal carotid arteries bilaterally as before. There is moderate diffuse cerebral atrophy. Small vessel atherosclerotic changes are seen in the periventricular white matter. There is no evidence of new infarction, hemorrhage, extra-axial fluid collection, mass or midline shift. Impression: Advanced diffuse atrophy vascular calcification and small vessel changes. No acute intracranial lesion. Signed by Jewel Wakefield MD 11/30/2016 06:44 P
[2016-11-30 17:49] LABS: BASO # 0.1 K/mm3 (0.0-0.2); BASO % 0.9 % (0.0-1.0); EOS # 0.4 K/mm3 (0.0-0.50); EOS % 5.4 % (0.0-3.0); LARGE UNSTAINED CELL # 0.1 K/mm3 (0.0-0.4); LARGE UNSTAINED CELL % 1.5 % (0.0-4.0); LYMPH # 1.8 K/mm3 (1.5-4.5); LYMPH % 21.8 % (24.0-44.0); MEAN CORPUSCULAR HEMOGLOBIN 29.6 pg (27.0-33.0); MEAN CORPUSCULAR HGB CONC 33.6 g/dl (32.0-36.5); MEAN CORPUSCULAR VOLUME 88.1 fl (80.0-96.0); MONO # 0.8 K/mm3 (0.0-0.8); MONO % 10.2 % (0.0-5.0); NEUTROPHILS # 4.8 K/mm3 (1.8-7.7); NEUTROPHILS % 60.3 % (36.0-66.0); PLATELET COUNT, AUTOMATED 234 k/mm3 (150-450); RED CELL DISTRIBUTION WIDTH 15.2 % (11.5-14.5); WHITE BLOOD COUNT 7.9 K/mm3 (4.0-10.0)
[2016-11-30 18:02] LABS: ALBUMIN 3.3 GM/DL (3.2-5.2); ALBUMIN/GLOBULIN RATIO 0.97 (1.00-1.93); ALKALINE PHOSPHATASE 89 U/L (45-117); ALT/SGPT 13 U/L (12-78); ANION GAP 8 MEQ/L (8-16); AST/SGOT 15 U/L (15-37); BILIRUBIN,DIRECT 0.3 MG/DL (0.0-0.2); BILIRUBIN,TOTAL 1.3 MG/DL (0.2-1.0); BLOOD UREA NITROGEN 22 MG/DL (7-18); CALCIUM LEVEL 9.4 MG/DL (8.8-10.2); CARBON DIOXIDE LEVEL 30 MEQ/L (21-32); CHLORIDE LEVEL 101 MEQ/L (98-107); CREATININE FOR GFR 2.31 MG/DL (0.55-1.02); GLOMERULAR FILTRATION RATE 21.5 (>32); GLUCOSE, FASTING 126 MG/DL (83-110); POTASSIUM SERUM 3.4 MEQ/L (3.5-5.1); SODIUM LEVEL 139 MEQ/L (136-145); TOTAL PROTEIN 6.7 GM/DL (6.4-8.2)
[2016-11-30] MEDS ORDERED: FUROSEMIDE 40 MG/4 ML VIAL (J1940) IV ONE (18:30)
[2016-11-30] MEDS ORDERED: AMLO10TA2 PO (18:56)
[2016-11-30] MEDS ORDERED: SENN8.6T7 PO (18:56)
[2016-11-30] MEDS ORDERED: GUAI400T6 PO (18:56)
[2016-11-30] MEDS ORDERED: ONDANSETRON 4MG/2ML VIAL (J2405) IV PRN (19:15)
--- NOTE | 2016-11-30 19:35 | REP ---
Portable chest x-ray: Single view: History: Altered mental status. Findings: The lungs are symmetrically aerated and free of infiltrate. Moderate to marked cardiac enlargement is seen. This is unchanged from the 11/10/2016 prior chest x-ray. Pulmonary vasculature however is cephalized and a little indistinct. No pleural effusion or pulmonary edema is appreciated. Impression: CHF pattern with pulmonary vascular cephalization and congestion. Moderate to marked cardiomegaly. Signed by Jewel Wakefield MD 11/30/2016 07:38 P
[2016-11-30] MEDS ORDERED: ACETAMINOPHEN 325 MG TAB PO PRN (19:45)
[2016-11-30] MEDS ORDERED: MOM 30ML SUSPENSION UDC PO PRN (19:45)
[2016-11-30] MEDS ORDERED: FLEET ENEMA PR PRN (19:45)
[2016-11-30] MEDS ORDERED: BISACODYL 10 MG SUPP PR PRN (19:45)
[2016-11-30] MEDS ORDERED: LORazepam 2 MG/ML VIAL (J2060) IV STA (19:50)
[2016-11-30] MEDS ORDERED: levETIRAcetam INJection 1,000 MG in D5W 100 ML IV ONE (20:00)
[2016-11-30] MEDS: IPRATROPIUM 0.5MG/ALBUTEROL 2.5MG INH SOL UD 3ML (DUONEB)(J7620) NEB SCH (20:00)
--- NOTE | 2016-11-30 20:32 | REP ---
MRI brain without contrast: History: Question CVA. Technique: The patient was unable to fully cooperate and a in the exam is very limited as a result. Diffusion weighted sequence was acquired. There is severe motion artifact on the turbo spin echo T2 axial. No other sequences could be acquired. Comparison is made with today's head CT. MRI findings: Diffusion weighted images demonstrate areas of restricted diffusion consistent with acute ischemia in the a watershed distribution involving the left occipitotemporal and bilateral posterior parietal lobes. There is also some patchy foci of left periventricular white matter restricted diffusion. These limited images show no evidence of intracranial hemorrhage. No restricted diffusion is evident in a the posterior fossa. Impression: Limited study. Diffusion weighted scans show evidence of restricted diffusion in a watershed distribution involving the left posterior occipitotemporal and bilateral posterior parietal lobes consistent with acute ischemia. There is a left frontal lobe periventricular white matter focus of acute ischemia as well. Signed by Jewel Wakefield MD 12/01/2016 07:54 A
[2016-11-30] MEDS ORDERED: DEXTROSE 50% 50 ML SYRINGE IV PRN (21:00)
[2016-11-30] MEDS ORDERED: DIVALPROEX SPRINKLE 125 MG CAP PO SCH (21:00)
[2016-11-30] MEDS ORDERED: HumaLOG INSULIN (NovoLOG) PER UNIT SC SCH (21:00)
[2016-11-30] MEDS: POTASSIUM CHLORIDE 10 MEQ SR TABLET PO SCH (21:00)
[2016-11-30] MEDS ORDERED: APIXABAN 2.5 MG TAB (ELIQUIS) PO SCH (21:00)
[2016-11-30] MEDS ORDERED: GLUCOSE 4 GM CHEW TABLET PO PRN (21:00)
[2016-11-30] MEDS ORDERED: GLUCAGON FOR INJ 1 MG VIAL (J1610) SC PRN (21:00)
[2016-11-30] MEDS: KCL 10MEQ IN 100ML SWI (KRUN) 10 MEQ in APPROPRIATE DILUENT 1 EA IV SCH ×2 (22:25)
[2016-11-30] MEDS: NS 1,000 ML IV SCH (22:25)
--- NOTE | 2016-11-30 22:30 | REPUSA ---
Clinical history: encephalopathy. Technique: Multiecho multiplanar MRI images of the brain were obtained without administration of cont rast. Diffusion weighted images with ADC mapping was also obtained. Findings: The ventricles and sulci are symmetric bilaterally. The brain parenchyma demonstrates uniform and nor mal signal on all sequences. There is no midline shift, mass effect, or extra-axial fluid collection. The midline intracranial structures do not demonstrate any gross abnormalities. The cervical cranial junction is intact. The orbits are unremarkable. The visualized paranasal sinuses and mastoid air ce lls are clear. The osseous structures and superficial soft tissues are unremarkable. The vascular str uctures demonstrate appropriate flow voids. Impression: No focal evidence of thrombosis, stenosis, or aneurysm.
--- NOTE | 2016-11-30 22:30 | REPUSA ---
Clinical history: encephalopathy. Technique: Multiecho multiplanar MRI images of the brain were obtained without administration of cont rast. Diffusion weighted images with ADC mapping was also obtained. Findings: The ventricles and sulci are symmetric bilaterally. The brain parenchyma demonstrates extensive areas of T2 hyperintensity throughout the subcortical white matter. Areas of T2 shine through are seen in the basal ganglia bilaterally. However, there appears to be a sub cortical area restricted diffusion in the left occipital lobe. There is no midline shift, mass effect, or extra-axial fluid collection. The midline intracranial structures do not demonstrate any gross abnormalities. The cervical cranial junction is intact. The orbits are unremarkable. The visualized paranasal sinuses and mastoid air opal ls are clear. The osseous structures and superficial soft tissues are unremarkable. The vascular stru ctures demonstrate appropriate flow voids. Impression: 1. Area of restricted diffusion in the left occipital lobe, suspicious for an acute infarct. 2. Extensive subcortical T2 hyperintensity seen bilaterally, consistent with severe chronic small ves abhilash ischemic disease. Age-related atrophy is also noted.
--- NOTE | 2016-11-30 22:54 | HPE ---
DATE OF ADMISSION: 11/30/2016 PRIMARY CARE PHYSICIAN: Dr. Ellis CHIEF COMPLAINT: Altered mental status, weakness of the right upper extremity. HISTORY OF THE PRESENT ILLNESS: Ms. Bowen is an 81-year-old female with multiple past medical history who was transferred from [facility] due to altered mental status as well as weakness of the right upper extremity, of the right side. The patient was accompanied by her son and her granddaughter who are also the patient's healthcare proxy who expressed that the patient was at her baseline and according to them, at her baseline, her right upper extremity is stronger than the left. However, around 2:30, it was noted by the [facility] staff that the patient's right upper extremity became weaker, and the patient also had speech abnormalities. And due to the possibility of cerebrovascular accident, the patient was transferred to the hospital. The patient's son expressed that when the patient arrived at the emergency room (ER) , the patient was able to recognize her son; however, the patient has more dysarthria. However, at the time of visit, the patient was not speaking and was making a moaning sound. The patient also started having spasms of the upper extremities; however, no lower extremity spasm was noticed. The patient has been seen by Dr. Mosqueda a week and a half ago and was started on Depakote 125 mg by mouth nightly for depression. However, at the ER, Depakote level was subtherapeutic. No episode of uncontrolled bowel or bladder movement was recorded. Also, no report of palpitations, racing or skipping heartbeat or chest pain was reported. The patient did not have fever, chills or night sweats before coming to the ER. No sick contact was recorded; however, the patient lives at [facility]. No new diet. The patient also did not have any cough or dyspnea. ALLERGIES: 1. NONSTEROIDAL ANTI-INFLAMMATORY DRUGS (NSAIDS). 2. NAPROXEN. 3. NIACIN. PAST MEDICAL HISTORY: 1. Type 2 diabetes mellitus. 2. Hypertension. 3. Dyslipidemia. 4. Diastolic heart failure. 5. Upper gastrointestinal (GI) bleeding with gastric ulcer. 6. Sleep apnea, not on continuous positive airway pressure (CPAP). 7. Atrial fibrillation, on Eliquis. 8. Gout. 9. Hypothyroidism. 10. Chronic kidney disease, stage IV. 11. Questionable history of chronic obstructive pulmonary disease (COPD). 12. Coronary artery disease. PAST SURGICAL HISTORY: 1. Cataract surgery. 2. Esophagogastroduodenoscopy (EGD) with clipping. 3. Bilateral knee replacement. 4. Left shoulder surgery. HOME MEDICATIONS: - acetaminophen 650 mg by mouth every 4 hours as needed for fever - albuterol sulfate one vial inhalation four times a day - ipratropium bromide/albuterol one vial inhalation four times a day - amlodipine besylate 10 mg by mouth daily - Eliquis 2.5 mg by mouth twice a day - atenolol 50 mg by mouth twice a day - Dulcolax 10 mg per rectum as needed for constipation - cholecalciferol 1000 units by mouth daily - colchicine 0.6 mg by mouth daily; patient has not been started taking medication yet. - Depakote 125 mg by mouth nightly - Senna S 8.6-50 mg one tablet by mouth twice a day - enema disposable one enema as needed for constipation - Lexapro 10 mg by mouth daily - guaifenesin 400 mg by mouth three times a day - Synthroid 50 mcg by mouth daily - Milk of Magnesia 30 mL by mouth daily as needed for constipation - pantoprazole 40 mg by mouth daily - potassium chloride 10 mEq by mouth nightly - Zantac one tablet by mouth twice a day - Zocor 40 mg by mouth nightly - torsemide 20 mg by mouth twice a day SOCIAL HISTORY: The patient has moved to [facility] about a week and a half ago. However, before that, the patient was living close to her son who was taking care of her. The patient occasionally drinks alcoholic beverages. Her last drink was a year ago; however, before that, the patient was occasionally drinking alcoholic beverages. The patient was smoking in her 20s for 10 years; however, she quit. However, family members do not know how much she was smoking. The patient did not have a history of illicit drug use. The patient is DO NOT RESUSCITATE (DNR), DO NOT INTUBATE (DNI). The patient has not traveled outside of the [place]. The patient has eight sons. FAMILY HISTORY: The patient's mother at age 101 due to old age. The patient's father at age 69 due to heart problems. The patient has one brother who is 10 years younger than her. REVIEW OF SYSTEMS: Review of systems cannot be obtained due to altered mental status. PHYSICAL EXAMINATION: Vital signs: Temperature 98.5, pulse 96, respiratory rate 19, blood pressure 147/73, pulse oximetry 93% on room air. General Appearance: The patient has metabolic encephalopathy and not able to answer questions. HEENT: Normocephalic, atraumatic. Pupils are equal and reactive to light. Oral mucosa cannot be appreciated due to patient not opening her mouth. Neck: Soft, supple. No lymphadenopathy. No thyromegaly. Heart: Regular rate and rhythm. Normal S1, S2. Lungs: The patient has decreased breath sounds at the base of the lung and good air movement. Abdomen: Soft, positive bowel sounds in all quadrants. No guarding or rebound. Extremities: The patient has mild lower extremity edema, +2 pulses in both lower extremities. The patient has a spasm of the upper extremity with retraction. However, the patient has no lower extremity spasm. Babinski sign was negative bilaterally. Sensation and strength cannot be obtained due to altered mental status. Neurologic: Cranial nerves II-XII cannot be obtained due to altered mental status. LABORATORY DATA: White blood cells 7.9, red blood cells 4.39, hemoglobin 13, hematocrit 38.7, MCV 88.1, MCH 29.6, MCHC 33.6, RDW 15.2, platelet count 234,neutrophil percentage 60.3, lymphocyte percentage 21.8, monocyte percentage 10.6, eosinophil percentage 5.4, basophil percentage 0.9, leukocyte percentage 1.5. Sodium 139, potassium 3.4, chloride 101, carbon dioxide 30, anion gap 8, BUN 22, creatinine 2.31, glomerular filtration rate 21.5, fasting glucose 126, lactic acid 2, calcium 9.4, total bilirubin 1.3, direct bilirubin 0.3, AST 15, ALT 13, alkaline phosphatase 89, ammonia 25, total creatinine kinase 73, CK-MB 1, CK-MB relative index 1.36, troponin I less than 0.02, total protein 6.7, albumin 3.3, TSH 4.46. UA: Urine color is straw, urine appearance clear, urine pH 5, urine specific gravity 1.006, urine protein negative, urine glucose negative, urine ketones negative, urine blood negative, urine nitrite negative, urine bilirubin negative , urine urobilinogen 0.2, urine leukocyte esterase negative, urine white blood cells 0, urine red blood cells 0, urine hyaline cast 0, urine bacteria negative, urine squamous epithelial cells 0. Valproic acid 26.6. Blood culture is pending. Urine culture is pending. IMAGING: CT of the head without contrast shows advanced diffuse atrophy vascular calcifications and small vessel changes. No acute intracranial lesions. Portable chest x-ray shows CHF pattern and pulmonary vascular cephalizations and congestion. Moderate to marked cardiomegaly. MRI of the brain without contrast shows diffusion weighted scan shows evidence of restricted diffusion in the watershed distribution involving the left posterior occipitotemporal and bilateral posterior parietal lobes consistent with acute ischemia. There is left frontal lobe periventricular white matter focus of acute ischemia as well. ASSESSMENT AND PLAN: 1. Altered mental status. This is possibly secondary to cerebrovascular accident versus seizure. We have consulted Dr. Casper. Mr. Casper recommended that we start the patient on Ativan 2 mg IV as well as Keppra 1000 mg IV and start the patient on IV Keppra tomorrow 1000 mg twice a day. Also, he recommended that at this time, we continue with Eliquis and start the patient on a nasogastric tube to be able to provide the patient with Eliquis and patient was admitted to the intensive care unit (ICU). Will continue with neurologic checks. We have ordered carotid ultrasound. Result is pending at this time. Also, the patient is nothing by mouth, and we have ordered a speech evaluation tomorrow. The patient is also on gentle IV fluids. There was no indication of infection. Urinalysis was negative, and no leukocytosis or fever, and patient is afebrile. Therefore, no antibiotic was started. Blood culture is pending at this time. Also, at this time, we would like to keep the patient's blood pressure between 140 to 180 systolic blood pressure. 2. Atrial fibrillation. We will continue the patient on Eliquis. The patient is also on atenolol 50 mg by mouth twice a day. At this time, the patient's heart rate is controlled. 3. Chronic kidney disease, stage IV. The patient is at baseline at this time. We will continue with the home dosage of medications for the blood pressure. 4. Diabetes mellitus, type 2. At this time, we have started the patient on sliding scale and since the patient is nothing by mouth, will do every 6 hours fingerstick. 5. Hypertension. We will continue the patient on current dosage of atenolol, Norvasc and torsemide. 6. Dyslipidemia. We will continue the patient on current dosage of Zocor. 7. History of gastrointestinal bleed. This is a chronic issue. At this time, the patient's hemoglobin and hematocrit is in normal range. We will continue monitoring the patient's hemoglobin and hematocrit. 8. Gout. The patient is on colchicine. 9. Hypothyroidism. Thyroid-stimulating hormone (TSH) is elevated today. We will repeat a TSH again. The patient is on Synthroid. 10. Gastroesophageal reflux disease (GERD). The patient is on Protonix. 11. Deep vein thrombosis (DVT) prophylaxis. The patient is on Eliquis. 12. Depression. Will continue the patient on home medication. 13. Diastolic heart failure. The patient's latest echocardiogram was done on 10/30/[address] Cordero, which indicated left ejection fraction of 75%, normal left ventricle size. AT this time, we will continue the patient on home medications. Also, since the patient is nothing by mouth, we have started the patient on gentle IV fluid. My preceptor for this patient encounter was Dr. Hankins. The preceptor was physically present in the building during the encounter and was fully available. As needed, all aspects of the patient interview, examination, medical decision making process, and medical care plan development were reviewed and approved by the preceptor. The preceptor is aware and concurs with the plan as stated in the body of this note and will attest to such by his/her cosignature. I, Stephanie Hankins, have both independently examined this patient as well as reviewed the documentation. I have discussed in detail with the resident the findings and plan of treatment as documented in the residents documentation. I will continue to follow the patient and offer further guidance to the patients care as necessary during this hospital stay. DANA
[2016-11-30 22:57] VITALS: BP 183/86
[2016-11-30 23:02] VITALS: BP 193/92
[2016-11-30 23:14] VITALS: BP 152/79
[2016-12-01] VITALS (18 sets, daily range): BP systolic 99–176; BP diastolic 58–89
[2016-12-01] MEDS ORDERED: ALBUTEROL SULFATE 2.5 MG/0.5 ML INH NEB SOLN INH SCH
[2016-12-01] MEDS: SENOKOT S TAB PO SCH ×3 (00:22→21:28)
[2016-12-01] MEDS: SIMVASTATIN 40 MG TAB PO SCH ×2 (00:22→21:27)
[2016-12-01] MEDS: FAMOTIDINE 20 MG TAB PO SCH ×3 (00:22→21:28)
[2016-12-01] MEDS: ATENOLOL 50 MG TAB PO SCH ×3 (00:22→21:28)
[2016-12-01] MEDS: APIXABAN 2.5 MG TAB (ELIQUIS) PO SCH ×3 (00:23→21:28)
[2016-12-01] MEDS: guaiFENesin 200 MG TAB PO SCH ×4 (00:23→21:28)
[2016-12-01] MEDS ORDERED: KCL 10MEQ IN STERILE WATER 100ML As Ordered ONE (00:25)
[2016-12-01] MEDS: KCL 10MEQ IN 100ML SWI (KRUN) 10 MEQ in APPROPRIATE DILUENT 1 EA IV SCH ×2 (00:26)
[2016-12-01 05:10] LABS: BASO % 0.5 % (0.0-1.0); EOS # 0.1 K/mm3 (0.0-0.50); EOS % 0.8 % (0.0-3.0); LARGE UNSTAINED CELL # 0.2 K/mm3 (0.0-0.4); LARGE UNSTAINED CELL % 2.3 % (0.0-4.0); LYMPH # 1.4 K/mm3 (1.5-4.5); LYMPH % 14.5 % (24.0-44.0); MEAN CORPUSCULAR HEMOGLOBIN 29.7 pg (27.0-33.0); MEAN CORPUSCULAR HGB CONC 33.3 g/dl (32.0-36.5); MEAN CORPUSCULAR VOLUME 89.1 fl (80.0-96.0); MONO # 0.9 K/mm3 (0.0-0.8); MONO % 9.1 % (0.0-5.0); NEUTROPHILS % 72.8 % (36.0-66.0); PLATELET COUNT, AUTOMATED 196 k/mm3 (150-450); RED CELL DISTRIBUTION WIDTH 14.9 % (11.5-14.5); WHITE BLOOD COUNT 9.6 K/mm3 (4.0-10.0)
[2016-12-01 05:33] LABS: ALBUMIN 3.2 GM/DL (3.2-5.2); ALBUMIN/GLOBULIN RATIO 1.14 (1.00-1.93); ALKALINE PHOSPHATASE 80 U/L (45-117); ALT/SGPT 12 U/L (12-78); ANION GAP 7 MEQ/L (8-16); AST/SGOT 15 U/L (15-37); BILIRUBIN,TOTAL 1.3 MG/DL (0.2-1.0); BLOOD UREA NITROGEN 22 MG/DL (7-18); CALCIUM LEVEL 8.7 MG/DL (8.8-10.2); CARBON DIOXIDE LEVEL 33 MEQ/L (21-32); CHLORIDE LEVEL 102 MEQ/L (98-107); FREE T4 1.17 NG/DL (0.76-1.46); GLOMERULAR FILTRATION RATE 21.6 (>32); GLUCOSE, FASTING 97 MG/DL (83-110); MAGNESIUM LEVEL 1.9 MG/DL (1.8-2.4); POTASSIUM SERUM 3.3 MEQ/L (3.5-5.1); SODIUM LEVEL 142 MEQ/L (136-145); T UPTAKE 32 % (30-39); THYROXINE (T4) 9.1 UG/DL (4.5-12.0)
[2016-12-01] MEDS: LEVOTHYROXINE 50MCG TABLET (0.05MG) PO SCH (05:50)
[2016-12-01] MEDS: HumaLOG INSULIN (NovoLOG) PER UNIT SC SCH ×4 (05:51→18:00)
--- NOTE | 2016-12-01 06:41 | REP ---
Bilateral carotid artery duplex ultrasound: Peak flow velocity analysis: RIGHT LEFT ICA. Peak flow velocity cm/sec 109 160 ICA Diastolic flow velocity cm/sec 10 21 ICA/CCA Ratio 1.92 2.80 There is moderate atheromatous plaque bilaterally extending from the bulbs into the proximal internal carotid arteries and external carotid arteries. Right carotid: The peak flow velocities are normal. The findings are compatible with less than 50% narrowing. No significant stenosis. Left carotid: The peak flow velocity in the ICA is elevated compatible with 50 - 69% narrowing. This indicates non-hemodynamicly significant stenosis. There is antegrade flow in the left vertebral artery. The right vertebral artery could not be visualized. Impression: Right carotid: No significant stenosis. Left carotid: Non-hemodynamically significant stenosis. Signed by Smotoh Ortiz MD 12/01/2016 06:32 A
[2016-12-01] MEDS ORDERED: HumaLOG INSULIN (NovoLOG) PER UNIT SC SCH (07:30)
[2016-12-01] MEDS: IPRATROPIUM 0.5MG/ALBUTEROL 2.5MG INH SOL UD 3ML (DUONEB)(J7620) NEB SCH ×4 (08:18→20:16)
--- NOTE | 2016-12-01 08:30 | ECGEPIP ---
Stationary ECG Study [facility] - ED Test Date: 2016-11-30 Pat Name: CATY ORTIZ Department: Room: - Gender: F Jigmaker: jatin : [id number] Requested By: Junior Hollis Order Number: [id number] Reading MD: Junior Sebastian Measurements Intervals Economy Rate: 103 P: NE: 0 QRS: 85 QRSD: 144 T: -59 QT: 375 QTc: 491 Interpretive Statements ATRIAL FIBRILLATION WITH VENTRICULAR PREMATURE COMPLEXES RIGHT BUNDLE BRANCH BLOCK ST DEVIATION AND MODERATE T-WAVE ABNORMALITY, CONSIDER INFERIOR ISCHEMIA SIMILAR TO 10/30/16 Electronically Signed On 12-01-2016 8:30:04 EDT by Junior Sebastian
[2016-12-01] MEDS ORDERED: POTASSIUM CHLORIDE 10% LIQ 20 MEQ/15 ML UDC NG ONE (09:00)
[2016-12-01] MEDS: NYSTATIN 100,000 UNITS/GM TOPICAL PWD 15 GM TOP SCH ×2 (09:00→21:27)
[2016-12-01] MEDS ORDERED: PANTOPRAZOLE 40MG TAB (PROTONIX) PO SCH (09:00)
[2016-12-01] MEDS ORDERED: levETIRAcetam INJection 1,000 MG in D5W 100 ML IV SCH (09:00)
[2016-12-01] MEDS ORDERED: amLODIPine 10 MG TAB PO SCH (09:00)
[2016-12-01] MEDS: TORSEMIDE 20 MG TAB PO SCH ×2 (09:14→16:07)
[2016-12-01] MEDS: ESCITALOPRAM OXALATE 10 MG TAB (LEXAPRO) PO SCH (09:14)
[2016-12-01] MEDS: VITAMIN D 1,000 INTERNATIONAL UNITS TABLET PO SCH (09:14)
[2016-12-01] MEDS: COLCHICINE 0.6 MG TAB PO SCH (09:15)
[2016-12-01] MEDS: levETIRAcetam INJection 500 MG in D5W 100 ML IV SCH ×2 (09:16→21:24)
[2016-12-01] MEDS: NS 1,000 ML IV SCH (09:17)
--- NOTE | 2016-12-01 09:19 | REP ---
CT HEAD WITHOUT CONTRAST: HISTORY: Right side weakness. COMPARISON: 11/30/2016 Areas of increased signal intensity on T2-weighted images are present in the periventricular and subcortical white matter. This represents small vessel ischemic disease. There is no intraparenchymal hemorrhage, mass or midline shift. The ventricular system and cortical sulci are dilated consistent with moderate volume loss. There is no extracerebral collection. IMPRESSION: 1. Small vessel ischemic disease. 2. Moderate volume loss. Signed by Shawn Ramon MD 12/01/2016 09:43 A
--- NOTE | 2016-12-01 09:46 | CR ---
DATE OF CONSULTATION: 12/01/2016 REFERRING PROVIDER: Dr. Stephanie Hankins. REASON FOR CONSULTATION: Altered mental status. HISTORY OF PRESENT ILLNESS: Amaris Bowen is an 81-year-old female with past medical history significant for baseline dementia, type 2 diabetes, hypertension, hyperlipidemia, history of suspicion of possible prior CVA, presenting with sudden change in mental status. The patient was last known to be normal around noon time today when she was eating lunch. She lives at [facility] and was with her physical therapist. The physical therapist noted that the patient was having difficulty using her right side and her mentation was off. The patient was brought to [facility]. Head CT was reported to be without any acute intracranial process with significant atrophy and small-vessel ischemic disease. The patient subsequently was noted to have incoherent language. She was mumbling. Her arms were kept in a flexed position with inability to straighten them. The patient did undergo an MRI which revealed bilateral parietal as well as left temporal occipital ischemic strokes. The patient does have atrial fibrillation and is on Eliquis. The patient was suspected to possibly be having seizures secondary to her stroke due to change in cognition and stiffening of her arms. She was given 2 mg of Ativan, which resolved those symptoms. She was loaded with 1000 mg IV Keppra. Due to stage IV chronic kidney disease, maintenance dose of Keppra was decreased down to 500 mg IV twice a day. The patient will be admitted for further management. She is not a candidate for tissue plasminogen activator (TPA) due to prior time of last known being normal beyond 4-1/2 hours. The patient also being on Eliquis was an issue. The patient presently has a reasonable blood pressure 136/81. The patient so far has had slightly elevated TSH, elevated BUN, creatinine, and negative troponin. Urinalysis was negative. The patient was recently started on valproic acid and has a subtherapeutic level of 26.6. Valproic acid was started with the primary care provider for depression. The patient will resume Eliquis for now. A repeat CT scan has been ordered for tomorrow morning. The patient will be admitted to the intensive care unit (ICU). ALLERGIES: NONSTEROIDAL ANTI-INFLAMMATORY DRUGS (NSAIDS), NAPROXEN. PAST MEDICAL HISTORY: Type 2 diabetes. Hypertension. Hyperlipidemia. Diastolic heart failure. Upper GI bleed with gastric ulcer. Sleep apnea not on C-PAP. Atrial fibrillation on Eliquis Gout. Hypothyroidism Chronic kidney disease stage IV. Questionable history of chronic obstructive pulmonary disease (COPD). Coronary artery disease. PAST SURGICAL HISTORY: Cataract surgery. Esophagogastroduodenoscopy (EGD) with clipping. Bilateral knee replacement. Left shoulder surgery. SOCIAL HISTORY: The patient occasionally drinks wine very rarely once every 2-3 months. She is a former smoker in her teenage years for 10 years. The patient does not use any illicit drugs. Her advanced directives state DO NOT RESUSCITATE, DO NOT INTUBATE. FAMILY HISTORY: Noncontributory. REVIEW OF SYSTEMS: Unable to obtain due to the patient's current cognitive status. HOME MEDICATIONS: - albuterol inhaler four times a day - DuoNebs four times a day - Eliquis 2.5 mg by mouth twice a day - atenolol 50 mg by mouth twice a day - vitamin D 1000 international units daily - colchicine 0.6 mg daily - Lexapro 10 mg daily - glipizide 2.5 mg daily - Synthroid 50 mcg by mouth daily - Protonix 40 mg daily - Seroquel 4.5 mg nightly - Zocor 40 mg daily - Januvia 25 mg by mouth daily - torsemide 5 mg daily - valsartan 160 mg daily - valproic acid PHYSICAL EXAMINATION: Blood pressure is 136/81, pulse rate 80, respiratory rate is 18, temperature is 98.5 degrees Fahrenheit, 98% oxygenation on room air. The patient is lying in bed presently status post treatment of Ativan and Keppra. The patient is sleeping. Her arms are by her side. At times when she wakes up she flexes her left upper extremity at the elbow and wrist. She does not move her eyes to look around the room. She does spontaneously move her left lower extremity. Pupils are 4 mm round, reactive to light. Positive doll's eye, positive corneal reflex. The patient occasionally makes groaning sound. Neck is supple without any meningismus. The patient at times demonstrates flexion at the left elbow and wrist however, when she is sleeping these tone resolve. Deep tendon reflexes are decreased throughout. Babinski signs are absent. Limited examination due to impaired consciousness at the present time. ASSESSMENT: Bilateral parietal and left frontal as well as left temporo-occipital ischemic strokes, possibly embolic in nature due to underlying atrial fibrillation. Bilateral parietal stroke. Thought to be due to watershed infarct, possibly related hypotension. PLAN: 1. Keep systolic blood pressure 140-180 times next 48-72 hours. 2. Continue Eliquis 2.5 mg by mouth twice a day. 3. Repeat head CT in the morning. 4. Continue Zocor 40 mg daily 5. Physical therapy, occupational therapy (PT, OT). 6. Nasogastric (NG) tube to be placed temporarily to provide oral medications along with feeds. 7. Health care proxy is at bedside who have made this decision for temporary NG tube. 8. Echocardiogram. 9. Rule out deep venous thromboses (DVTs) with lower extremity ultrasound. 10. Continue Keppra 500 mg by mouth bid. 11. Obtain electroencephalogram ( EEG) rule out cortical dysfunction and seizures. 12. Gastrointestinal (GI) and deep venous thrombosis (DVT) prophylaxis. 13. Will continue to follow. History obtained from the patient's granddaughter and the patient's sons.
--- NOTE | 2016-12-01 12:19 | REP ---
Bilateral lower extremity deep vein duplex ultrasound: The deep veins demonstrate normal compression, normal Doppler color flow and normal Doppler waveforms with respiration and and augmentation at multiple levels from the popliteal veins to the common femoral veins bilaterally. There is no thrombus on the right on the left. However, there is a focal zone of the mid left femoral vein that could not be visualized because of superimposed sterile dressing. Impression: No deep vein thrombus on the right on the left, however, there is a focal zone that we are unable to visualize in the mid left femoral vein because of superimposed sterile dressing. Signed by Smooth Ortiz MD 12/01/2016 12:11 P
[2016-12-01] MEDS: POTASSIUM CHLORIDE 10 MEQ SR TABLET PO SCH (21:28)
[2016-12-01] MEDS: ACETAMINOPHEN TAB 650MG DOSE (2X325MG) PO PRN (21:46)
[2016-12-02] MEDS: HumaLOG INSULIN (NovoLOG) PER UNIT SC SCH ×4 (01:30→18:40)
[2016-12-02 04:00] VITALS: BP 165/91
[2016-12-02 05:47] LABS: BASO % 0.3 % (0.0-1.0); EOS # 0.2 K/mm3 (0.0-0.50); EOS % 1.9 % (0.0-3.0); LARGE UNSTAINED CELL # 0.1 K/mm3 (0.0-0.4); LARGE UNSTAINED CELL % 1.5 % (0.0-4.0); LYMPH # 1.5 K/mm3 (1.5-4.5); MEAN CORPUSCULAR HEMOGLOBIN 29.4 pg (27.0-33.0); MEAN CORPUSCULAR HGB CONC 33.3 g/dl (32.0-36.5); MEAN CORPUSCULAR VOLUME 88.5 fl (80.0-96.0); MONO # 0.9 K/mm3 (0.0-0.8); MONO % 9.6 % (0.0-5.0); NEUTROPHILS # 6.5 K/mm3 (1.8-7.7); NEUTROPHILS % 71.8 % (36.0-66.0); PLATELET COUNT, AUTOMATED 192 k/mm3 (150-450); RED CELL DISTRIBUTION WIDTH 14.9 % (11.5-14.5)
[2016-12-02 05:56] LABS: ALBUMIN/GLOBULIN RATIO 0.94 (1.00-1.93); BILIRUBIN,TOTAL 1.4 MG/DL (0.2-1.0); CALCIUM LEVEL 8.6 MG/DL (8.8-10.2); CREATININE FOR GFR 2.14 MG/DL (0.55-1.02); GLOMERULAR FILTRATION RATE 23.4 (>32); MAGNESIUM LEVEL 1.7 MG/DL (1.8-2.4); POTASSIUM SERUM 2.9 MEQ/L (3.5-5.1); TOTAL PROTEIN 6.2 GM/DL (6.4-8.2)
[2016-12-02] MEDS: NS 1,000 ML IV SCH ×2 (06:11→16:28)
[2016-12-02] MEDS: LEVOTHYROXINE 50MCG TABLET (0.05MG) PO SCH (06:12)
[2016-12-02] MEDS ORDERED: POTASSIUM CHLORIDE 10 MEQ SR TABLET PO ONE (06:30)
[2016-12-02] MEDS ORDERED: MAG SULF 1GM/100ML (MAG RUN) 1 GM in APPROPRIATE DILUENT 1 EA IV ONE (06:30)
[2016-12-02] MEDS: IPRATROPIUM 0.5MG/ALBUTEROL 2.5MG INH SOL UD 3ML (DUONEB)(J7620) NEB SCH ×4 (07:23→19:53)
[2016-12-02 07:30] VITALS: BP 181/99
[2016-12-02] MEDS: SENOKOT S TAB PO SCH ×2 (08:38→20:09)
[2016-12-02] MEDS: VITAMIN D 1,000 INTERNATIONAL UNITS TABLET PO SCH (08:38)
[2016-12-02] MEDS: FAMOTIDINE 20 MG TAB PO SCH ×2 (08:38→20:09)
[2016-12-02] MEDS: APIXABAN 2.5 MG TAB (ELIQUIS) PO SCH ×2 (08:39→20:09)
[2016-12-02] MEDS: TORSEMIDE 20 MG TAB PO SCH ×2 (08:39→16:28)
[2016-12-02] MEDS: COLCHICINE 0.6 MG TAB PO SCH (08:39)
[2016-12-02] MEDS: ESCITALOPRAM OXALATE 10 MG TAB (LEXAPRO) PO SCH (08:39)
[2016-12-02] MEDS: levETIRAcetam INJection 500 MG in D5W 100 ML IV SCH (08:39)
[2016-12-02] MEDS: guaiFENesin 200 MG TAB PO SCH ×3 (08:39→20:09)
[2016-12-02] MEDS: ATENOLOL 50 MG TAB PO SCH ×2 (08:40→20:10)
[2016-12-02] MEDS: NYSTATIN 100,000 UNITS/GM TOPICAL PWD 15 GM TOP SCH ×2 (08:41→20:10)
[2016-12-02 11:30] VITALS: BP 178/89
[2016-12-02 15:31] LABS: CALCIUM LEVEL 9.1 MG/DL (8.8-10.2); CREATININE FOR GFR 2.14 MG/DL (0.55-1.02); GLOMERULAR FILTRATION RATE 23.4 (>32); POTASSIUM SERUM 3.3 MEQ/L (3.5-5.1)
[2016-12-02 16:00] VITALS: BP 168/70
[2016-12-02 20:00] VITALS: BP 186/83
[2016-12-02] MEDS: SIMVASTATIN 40 MG TAB PO SCH (20:09)
[2016-12-02] MEDS: POTASSIUM CHLORIDE 10% LIQ 20 MEQ/15 ML UDC PO SCH (20:09)
[2016-12-02] MEDS: ACETAMINOPHEN TAB 650MG DOSE (2X325MG) PO PRN (20:13)
--- NOTE | 2016-12-02 21:10 | IPN ---
DATE: 12/02/2016 Ms Bowen not a useful historian this morning. There is no significant history noted overnight by the staff, although later on this morning her NG tube did become clogged and needed to be replaced. She is opening her eyes spontaneously. Temperature 98.4, pulse 78, respiratory rate 20, blood pressure 168/89, 97% on 2 liters. Intake and output (I and O) notable for a negative fluid of -865. Two bowel movements thus far today. She is opening her eyes spontaneously. Localizing pain. Mucous membranes moist. Neck is supple. Breathing is symmetrical. I to E ratio is 1 to 3. Diminished. No wheezes. HEART: Distant sounding. Normal S1, S2. No significant arrhythmia noted on monitor. ABDOMEN: Soft, doughy, nontender. White cell count is 9, hemoglobin 12.3, platelets 192. BUN 20, creatinine 2.14, improving. Potassium 2.9, trending downward. ASSESSMENT: This is an 81-year-old with metabolic encephalopathy related to CVA and possible seizure. PLAN: 1. Neurologic. I discussed this case yesterday by phone with Dr. Casper, but he continued to await the results of EEG and 2D echo cardiogram that were ordered previously. Continuing with Melanie and pursuing management of her neurologic status per Dr. Casper. 2. The patient has a history of atrial fibrillation. He is on Eliquis given through the NG tube. 3. The patient has chronic kidney disease, stage IV with some evidence of acute renal failure which is somewhat improving. 4. The patient has hypokalemia which will be repleted. 5. The patient has type 2 diabetes. 6. The patient has hypertension. Blood pressure parameters per Dr. Casper. 7. The patient has dyslipidemia. 8. The patient has gout. 9. The patient has hypothyroidism. 10. The patient has underlying dementia and is a patient of [facility]. 11. The patient has congestive heart failure, diastolic dysfunction. 12. Please note my note is somewhat limited as yesterday's progress note is yet to be transcribed.
--- NOTE | 2016-12-02 21:41 | IPN ---
DATE: 12/01/2016 SUBJECTIVE: Ms. Bowen is not a useful historian this morning. She is not responding to verbal stimuli. She is moaning to pain. No issues were noted overnight. She has not been pulling at her nasogastric (NG) tube. OBJECTIVE: VITAL SIGNS: Temperature 98.2, most recent pulse 77, respiratory rate 20, blood pressure 161/74, 98% on two liters. Intake and output notable for positive fluid balance of 210. Weight 79 kg. GENERAL: She is moaning to painful stimuli. HEENT: Pupils are equally round and reactive. No evidence of APD. Facies are symmetrical. LUNGS: Breathing is symmetrical. Respiratory rate 22 on my exam. Aeration is not diminished. No wheezes. No upper airway sounds. HEART: Distant sounding normal S1, S2. Radial pulses 2+. ABDOMEN: Soft, doughy, nontender. LABORATORY DATA: White cell count 9.6, hemoglobin 12.3, and platelets of 196. Albumin 22, creatinine 2.3. Potassium 3.3. Troponins negative times three. TSH 3.05. MICROBIOLOGY: Blood cultures pending. IMAGING: Lower extremity Doppler shows no evidence of clot, though it is an incomplete exam because on the left we were unable to adequately visualized. Head CT repeated this morning showed no acute changes. ASSESSMENT: This is an 81-year-old with multiple medical issues who presents with acute stroke, altered mental status, metabolic encephalopathy, and possible seizure. PLAN: 1. Neurologic: I have discussed this case in general with Dr. Casper who suggests electroencephalogram (EEG), echocardiogram, continued monitoring on telemetry, continuing with Lydia for now using NG tube. 2. The patient has atrial fibrillation. Continue Eliquis. Rate is controlled. 3. The patient has chronic kidney disease stage IV, appears to be at baseline. 4. The patient has type two diabetes. 5. The patient has hypertension. 6. The patient has dyslipidemia. 7. The patient has history of gastrointestinal (GI) bleed. 8. The patient has gout. 9. The patient has hypothyroidism. 10. The patient has diastolic heart failure that appears to be compensated at this time. Currently on small amounts of intravenous (IV) fluid. 11. The patient's doting family is at bedside, and we discussed the case at length. Their goal is to pursue reasonable care that does not have excessive risk or cause pain to the patient. They would consider comfort care depending on her level of improvement. DANA
[2016-12-02 23:59] VITALS: BP 175/77
[2016-12-03] MEDS: HumaLOG INSULIN (NovoLOG) PER UNIT SC SCH ×5 (00:15→23:35)
[2016-12-03] MEDS: ACETAMINOPHEN TAB 650MG DOSE (2X325MG) PO PRN ×2 (00:50→10:37)
[2016-12-03 04:00] VITALS: BP 182/83
[2016-12-03] MEDS: LEVOTHYROXINE 50MCG TABLET (0.05MG) PO SCH (05:14)
[2016-12-03 05:51] LABS: BASO # 0.1 K/mm3 (0.0-0.2); BASO % 0.6 % (0.0-1.0); EOS # 0.2 K/mm3 (0.0-0.50); EOS % 1.3 % (0.0-3.0); LARGE UNSTAINED CELL # 0.2 K/mm3 (0.0-0.4); LARGE UNSTAINED CELL % 1.6 % (0.0-4.0); LYMPH # 1.9 K/mm3 (1.5-4.5); LYMPH % 16.7 % (24.0-44.0); MEAN CORPUSCULAR HEMOGLOBIN 30.1 pg (27.0-33.0); MEAN CORPUSCULAR HGB CONC 33.8 g/dl (32.0-36.5); MONO # 1.2 K/mm3 (0.0-0.8); MONO % 10.4 % (0.0-5.0); NEUTROPHILS % 69.5 % (36.0-66.0); PLATELET COUNT, AUTOMATED 222 k/mm3 (150-450); RED CELL DISTRIBUTION WIDTH 14.6 % (11.5-14.5); WHITE BLOOD COUNT 11.5 K/mm3 (4.0-10.0)
[2016-12-03 06:19] LABS: ALBUMIN 3.3 GM/DL (3.2-5.2); ALBUMIN/GLOBULIN RATIO 1.03 (1.00-1.93); BILIRUBIN,TOTAL 1.6 MG/DL (0.2-1.0); CALCIUM LEVEL 9.1 MG/DL (8.8-10.2); CREATININE FOR GFR 2.05 MG/DL (0.55-1.02); GLOMERULAR FILTRATION RATE 24.6 (>32); POTASSIUM SERUM 3.2 MEQ/L (3.5-5.1); TOTAL PROTEIN 6.5 GM/DL (6.4-8.2)
[2016-12-03] MEDS: **hydrALAZINE** 10 MG TAB PO SCH ×3 (06:43→21:38)
[2016-12-03] MEDS: IPRATROPIUM 0.5MG/ALBUTEROL 2.5MG INH SOL UD 3ML (DUONEB)(J7620) NEB SCH ×4 (07:09→20:11)
[2016-12-03 07:30] VITALS: BP 162/82
[2016-12-03] MEDS: COLCHICINE 0.6 MG TAB PO SCH (09:23)
[2016-12-03] MEDS: VITAMIN D 1,000 INTERNATIONAL UNITS TABLET PO SCH (09:24)
[2016-12-03] MEDS: guaiFENesin 200 MG TAB PO SCH ×3 (09:24→21:37)
[2016-12-03] MEDS: FAMOTIDINE 20 MG TAB PO SCH ×2 (09:24→21:37)
[2016-12-03] MEDS: SENOKOT S TAB PO SCH ×2 (09:24→21:37)
[2016-12-03] MEDS: ESCITALOPRAM OXALATE 10 MG TAB (LEXAPRO) PO SCH (09:24)
[2016-12-03] MEDS: amLODIPine 10 MG TAB PO SCH (09:24)
[2016-12-03] MEDS: ATENOLOL 50 MG TAB PO SCH ×2 (09:25→21:37)
[2016-12-03] MEDS: APIXABAN 2.5 MG TAB (ELIQUIS) PO SCH ×2 (09:25→21:37)
[2016-12-03] MEDS: TORSEMIDE 20 MG TAB PO SCH ×2 (09:25→17:10)
[2016-12-03] MEDS: NYSTATIN 100,000 UNITS/GM TOPICAL PWD 15 GM TOP SCH ×2 (09:26→21:39)
[2016-12-03] MEDS: NS 1,000 ML IV SCH ×2 (09:35→21:36)
[2016-12-03 12:00] VITALS: BP 163/77
[2016-12-03] MEDS: MORPHINE 2 MG/ML 1ML SYRINGE IV PRN ×5 (12:20→23:35)
--- NOTE | 2016-12-03 13:31 | EEG ---
DATE OF PROCEDURE: 12/02/2016 REFERRING PHYSICIAN: Dr. Roger Vance EEG NUMBER: [id number]. DIAGNOSIS: Altered mental status. HISTORY: Patient is an 81-year-old woman who was admitted at [facility] due to altered mental status. She was found to have bilateral ischemic strokes, worse on left side. She is currently on Keppra, atenolol, Lexapro, Protonix, Pepcid, levothyroxine, torsemide, Eliquis, Zocor. TECHNICAL DESCRIPTION: This digital EEG was recorded by 21 scalp, ear and two EKG electrodes and was reviewed in bipolar and referential montages following reformatting in 10-20 international electrode placement system. INTERPRETATION: Patient was noted to be in awake and drowsy states during this EEG. Resting awake background rhythm consisted of 5-6 Hz theta activity measuring 15-40 microvolts in amplitude. Excessive muscle and motion artifacts were noted throughout this study in bilateral frontal and temporal head regions. 3-4 Hz delta activity was noted predominantly in left temporal and parietal head regions. No epileptiform abnormalities were seen. No clinical or electrographic seizures were recorded. Hyperventilation could not be performed. Photic stimulation remained unremarkable. EKG was affected by motion artifact. CONCLUSION: This EEG in awake and drowsy state is abnormal due to presence of generalized slowing and disorganization of background consistent with nonspecific diffuse cerebral dysfunction such as seen in encephalopathy due to multiple potential causes including toxic, metabolic, autoimmune, infectious, medication related or multifocal structural abnormality (dictation cut off) left temporal and parietal focal slowing is consistent with focal cortical structural or functional abnormality. No epileptiform abnormalities were seen. Clinical correlation is recommended.
[2016-12-03 16:00] VITALS: BP 168/92
[2016-12-03 20:00] VITALS: BP 173/79
[2016-12-03] MEDS: POTASSIUM CHLORIDE 10% LIQ 20 MEQ/15 ML UDC PO SCH (21:37)
[2016-12-03] MEDS: SIMVASTATIN 40 MG TAB PO SCH (21:37)
[2016-12-03 23:59] VITALS: BP 179/87
[2016-12-04] MEDS: MORPHINE 2 MG/ML 1ML SYRINGE IV PRN ×6 (02:58→14:50)
[2016-12-04 04:45] VITALS: BP 168/86
[2016-12-04 05:19] VITALS: BP 168/86
[2016-12-04] MEDS: **hydrALAZINE** 10 MG TAB PO SCH (05:19)
[2016-12-04] MEDS: LEVOTHYROXINE 50MCG TABLET (0.05MG) PO SCH (05:19)
[2016-12-04 06:36] LABS: BASO # 0.1 K/mm3 (0.0-0.2); BASO % 0.7 % (0.0-1.0); EOS # 0.2 K/mm3 (0.0-0.50); EOS % 1.6 % (0.0-3.0); LARGE UNSTAINED CELL # 0.1 K/mm3 (0.0-0.4); LYMPH # 1.4 K/mm3 (1.5-4.5); LYMPH % 9.5 % (24.0-44.0); MEAN CORPUSCULAR HEMOGLOBIN 29.9 pg (27.0-33.0); MEAN CORPUSCULAR HGB CONC 33.1 g/dl (32.0-36.5); MEAN CORPUSCULAR VOLUME 90.1 fl (80.0-96.0); MONO # 1.1 K/mm3 (0.0-0.8); NEUTROPHILS # 10.5 K/mm3 (1.8-7.7); NEUTROPHILS % 79.2 % (36.0-66.0); PLATELET COUNT, AUTOMATED 213 k/mm3 (150-450); RED CELL DISTRIBUTION WIDTH 14.7 % (11.5-14.5); WHITE BLOOD COUNT 13.2 K/mm3 (4.0-10.0)
[2016-12-04 06:52] LABS: ALBUMIN 3.2 GM/DL (3.2-5.2); ALBUMIN/GLOBULIN RATIO 0.94 (1.00-1.93); BILIRUBIN,TOTAL 1.6 MG/DL (0.2-1.0); CALCIUM LEVEL 8.8 MG/DL (8.8-10.2); CREATININE FOR GFR 1.92 MG/DL (0.55-1.02); GLOMERULAR FILTRATION RATE 26.6 (>32); MAGNESIUM LEVEL 1.9 MG/DL (1.8-2.4); POTASSIUM SERUM 3.1 MEQ/L (3.5-5.1); TOTAL PROTEIN 6.6 GM/DL (6.4-8.2)
[2016-12-04] MEDS: HumaLOG INSULIN (NovoLOG) PER UNIT SC SCH (06:53)
[2016-12-04] MEDS: IPRATROPIUM 0.5MG/ALBUTEROL 2.5MG INH SOL UD 3ML (DUONEB)(J7620) NEB SCH ×2 (07:17→11:54)
[2016-12-04 08:00] VITALS: BP 153/80
[2016-12-04] MEDS: guaiFENesin 200 MG TAB PO SCH (10:01)
[2016-12-04] MEDS: SENOKOT S TAB PO SCH (10:02)
[2016-12-04] MEDS: amLODIPine 10 MG TAB PO SCH (10:02)
[2016-12-04] MEDS: FAMOTIDINE 20 MG TAB PO SCH (10:02)
[2016-12-04] MEDS: COLCHICINE 0.6 MG TAB PO SCH (10:02)
[2016-12-04] MEDS: VITAMIN D 1,000 INTERNATIONAL UNITS TABLET PO SCH (10:02)
[2016-12-04] MEDS: TORSEMIDE 20 MG TAB PO SCH (10:03)
[2016-12-04] MEDS: ATENOLOL 50 MG TAB PO SCH (10:03)
[2016-12-04] MEDS: APIXABAN 2.5 MG TAB (ELIQUIS) PO SCH (10:03)
[2016-12-04] MEDS: ESCITALOPRAM OXALATE 10 MG TAB (LEXAPRO) PO SCH (10:05)
[2016-12-04] MEDS: NYSTATIN 100,000 UNITS/GM TOPICAL PWD 15 GM TOP SCH (10:05)
[2016-12-04] MEDS ORDERED: LORA1TAB12 PO ×2 (10:28→12:17)
[2016-12-04] MEDS ORDERED: MORP1SOL PO ×2 (10:28→12:17)
[2016-12-04] MEDS ORDERED: ATRO1OPD PO ×2 (10:28→12:17)
--- NOTE | 2016-12-04 11:22 | ECHO ---
DATE OF PROCEDURE: 12/02/2016 DATE OF : 1935 AGE: 81 REFERRING PROVIDER: Dr. Roger Vance PATIENT LOCATION: Room 3228. REASON FOR ECHOCARDIOGRAM: Cerebrovascular accident (CVA). 2D MEASUREMENTS: IVS: 1.3 cm LV: 4.1 cm LVPW: 1.3 cm LA: 4.6 cm Aorta: 3.2 cm IVC: 1.8 cm DOPPLER MEASUREMENTS: Peak velocity across the aortic valve: 2.5 m/s Peak velocity across the LVOT: 0.6 m/s Mean gradient across the aortic valve: 26 mmHg Maximum gradient across the aortic valve: 14.6 mmHg Mitral E: 2.1 Peak gradient across the mitral valve: 19.3 mmHg Mean gradient across the mitral valve: 6.0 mmHg 2D COMMENTS: 1. Normal left ventricular size with mildly increased left ventricular wall thickness. Left ventricular systolic function is normal, estimated at 60% to 65%. 2. Mildly enlarged left atrium. The right atrium also appeared to be enlarged. Normal right ventricle. 3. There was a color flow jet noted at the level of the fossa ovalis of the atrial septum that may represent an intracardiac shunt secondary to a patent foramen ovale. 4. Normal aortic root. 5. No pericardial effusion seen. 6. Moderately calcified aortic valve with decreased in leaflet motion. Moderately calcified mitral annulus with normal anterior mitral valve leaflet motion. Normal tricuspid valve. The pulmonic valve was not well visualized. 7. The inferior vena cava was normal in size, central venous pressure is most likely normal. DOPPLER: It detects trace aortic regurgitation, mild mitral regurgitation, mild tricuspid regurgitation. The calculated pulmonary artery systolic pressure varies between 30 to 40 mmHg. Assessment of the left ventricular diastolic function was limited , patient appears to be in atrial fibrillation during the test. IMPRESSION: 1. Normal global left ventricular systolic function with mild concentric left ventricular hypertrophy. 2. Mildly enlarged left atrium with mitral annulus calcification and mild mitral regurgitation. There was also mild to moderate calcific mitral stenosis. 3. Aortic valve sclerosis with trace aortic regurgitation and mild aortic stenosis. 4. Mild tricuspid regurgitation with mild pulmonary hypertension and dilated right atrium. 5. Possible patent foramen ovale/PFO. MTDD
[2016-12-04] MEDS ORDERED: LORazepam 1 MG TAB PO PRN (12:15)
[2016-12-04] MEDS: ATROPINE SULFATE 1% OP SOLN 2 ML BTL SL PRN ×2 (12:47→14:51)
--- NOTE | 2016-12-04 15:18 | DSES ---
DATE OF ADMISSION: 11/30/2016 DATE OF DISCHARGE: 12/04/2016 SPECIALISTS INVOLVED IN CARE: Dr. Casper. COMPLICATIONS: No complications of her stay. PROCEDURES: No procedures performed during her stay. DISCHARGE DIAGNOSES: 1. Bilateral parietal left frontal and left temporal occipital ischemic strokes, likely embolic. 2. Atrial fibrillation, anticoagulated. 3. Chronic kidney disease stage IV. 4. Hypokalemia. 5. Type 2 diabetes. 6. Hypertension. 7. Dyslipidemia. 8. Gout. 9. Hypothyroidism. 10. Dementia. 11. Congestive heart failure, diastolic dysfunction, compensated. SUMMARY OF PRESENTATION: This is an 81-year-old who presented with metabolic encephalopathy, weakness in the right upper extremity, and was brought to the hospital for evaluation. Was found to have bilateral infarcts. She was seen and evaluated by doctor. Normal stroke care was commenced. She did have a nasogastric (NG) placed. Prognosis was poor from the beginning. There was some concern initially about the possibility of seizures. There was no evidence of seizure-like activity on the electroencephalogram (EEG). Seizure medication was stopped. The patient was given time to recover from side effects of antiepileptic drugs. She was not showing reasonable recovery. A family meeting was held today to discuss the patient's best known wishes and the family's understanding of what she would want for her care. The patient did have a pre-existing Medical Orders for Life-Sustaining Treatment (MOLST) form filled out. At this time, the patient is pursuing comfort care and will be transferred back to [facility]. MEDICATIONS AT DISCHARGE: - atropine drops 1-2 drops every two hours as needed for terminal secretions - Ativan 0.5 mg every four hours as needed for anxiety or agitation - morphine sulfate in the form of Roxanol 0.25 to 1 mL by mouth every two hours as needed for pain or shortness of breath - continue on albuterol inhaled four times a day as needed for shortness of breath Discontinue the rest of her home medications. Please note: A MOLST form has been completed, and the patient is comfort measures only.
--- NOTE | 2016-12-04 17:02 | IPN ---
DATE: 12/03/2016 Ms. Bowen is not a useful historian. No events were noted by the staff overnight. She is intermittent moaning. PHYSICAL EXAMINATION: VITAL SIGNS: Temperature is 97.8, pulse 65, respiratory rate 20, blood pressure 160/92, 95% on 2 liters. She is intermittent moaning and moving her right lower extremity spontaneously. Mucous membranes are moist. Nasogastric tube in place. Breathing is symmetrical and rested. Heart is distant sounding. Abdomen is soft, doughy, nontender to deep palpation. She has increased tone on the left and decreased tone on the right upper extremity. She is moving her right lower extremity spontaneously. White cell count 11.5, hemoglobin 13.7, creatinine 2.05 and improving, potassium 3.2. EEG shows no seizure activity. ASSESSMENT: This is an 81-year-old with significant acute stroke, metabolic encephalopathy. PLAN: 1. Neurological. I have discussed this case with Dr. Casper by phone who is suspicious that the patient will not recover function in a meaningful sense. He has discussed the case with the patient's family if they would like a hospice consult, although they have not yet decided on definitive comfort care. 2. The patient has atrial fibrillation and is currently on Eliquis. 3. The patient has chronic kidney disease stage IV. Appears generally at her baseline, but creatinine is improving with hydration. 4. The patient has type 2 diabetes. 5. The patient has hypertension. 6. The patient has dyslipidemia. 7. The patient has congestive heart failure (CHF) with diastolic dysfunction, which is compensated.
--- NOTE | 2016-12-05 09:07 | IPN ---
DATE: 12/04/2016 Ms. Bowen is not particularly interactive today. She is moaning. She opens her eyes spontaneously but does not make purposeful movements. Temperature is 97.6, pulse 67, respiratory rate 20, blood pressure 123/80, 95% on 2 liters. Input and output notable for a positive fluid balance of 340. Body mass index 30.8. She is not making purposeful movements. Does moan to pain. Breathing is symmetrical. Some forced upper airway sounds are noted. Heart is distant sounding, normal S1, S2. Abdomen is soft, doughy, nontender. White cell count 13.2, hemoglobin 12.9, BUN 19, creatinine 1.92. ASSESSMENT: This is an 81-year-old with metabolic encephalopathy related to cerebrovascular accident (CVA) and possible seizure. PLAN: 1. Neurologic. I again discussed this case with Dr. Casper yesterday and with the family, daughter health care proxy at bedside today. Plan is to consider comfort care today after a family meeting with Dr. Casper. 2. Patient has a history of atrial fibrillation. She is on Eliquis through NG tube. 3. Patient has chronic kidney disease stage IV with improving acute renal failure with hydration. 4. Patient has type 2 diabetes. 5. Patient has hypertension, dyslipidemia and gout. 6. Patient has hypothyroidism. 7. Patient has underlying dementia. Is a patient of [facility] apparently. Family would like to get the patient back to [facility] for remaining portion of her life. I did contact hospice for possible consult yesterday. It is unclear when that will happen over the weekend and [facility] may take the patient back this weekend. 8. Patient has a history of congestive heart failure with diastolic dysfunction.
== END 2016-12-04 16:51 | DRG 64 ==
LOC: M ED 15:22 → M ED INP 18:39 → M ICU 22:48 → M PCU 12-01 18:05
PROVIDERS: ADMIT Internal Medicine; ATTEND Internal Medicine
DX: I63.49 Cerebral infarction due to embolism of other cerebral artery (principal); G93.41 Metabolic encephalopathy; N18.4 Chronic kidney disease, stage 4 (severe); I50.32 Chronic diastolic (congestive) heart failure; I13.0 Hypertensive heart and chronic kidney disease with heart failure and stage 1 through stage 4 chronic kidney disease, or unspecified chronic kidney disease; Z66 Do not resuscitate; I48.91 Unspecified atrial fibrillation; E87.6 Hypokalemia; E11.9 Type 2 diabetes mellitus without complications; M10.9 Gout, unspecified; E03.9 Hypothyroidism, unspecified; F03.90 Unspecified dementia, unspecified severity, without behavioral disturbance, psychotic disturbance, mood disturbance, and anxiety; Z51.5 Encounter for palliative care; Z79.899 Other long term (current) drug therapy; Z88.8 Allergy status to other drugs, medicaments and biological substances; E78.5 Hyperlipidemia, unspecified; Z79.01 Long term (current) use of anticoagulants; I25.10 Atherosclerotic heart disease of native coronary artery without angina pectoris; G47.30 Sleep apnea, unspecified; Z96.651 Presence of right artificial knee joint; Z96.652 Presence of left artificial knee joint; Z87.891 Personal history of nicotine dependence; K21.9 Gastro-esophageal reflux disease without esophagitis; F32.9 Major depressive disorder, single episode, unspecified

== ENCOUNTER → 2016-11-30 | Outpatient (REF) ==
[2016-11-30 09:25] LABS: MEAN CORPUSCULAR HEMOGLOBIN 29.9 pg (27.0-33.0); MEAN CORPUSCULAR HGB CONC 33.4 g/dl (32.0-36.5); MEAN CORPUSCULAR VOLUME 89.3 fl (80.0-96.0); RED CELL DISTRIBUTION WIDTH 14.9 % (11.5-14.5); WHITE BLOOD COUNT 7.2 K/mm3 (4.0-10.0)
[2016-11-30 10:09] LABS: CALCIUM LEVEL 9.6 MG/DL (8.8-10.2); CREATININE FOR GFR 2.4 MG/DL (0.55-1.02); GLOMERULAR FILTRATION RATE 20.5 (>32); POTASSIUM SERUM 3.5 MEQ/L (3.5-5.1)
== END ==
PROVIDERS: ATTEND Internal Medicine
DX: I50.9 Heart failure, unspecified (principal)